=== PATIENT | female | born 1980 | race Caucasian/White ===

== ENCOUNTER 2020-09-10 10:03 | Outpatient (REF) | payer OTHER, SELFPAY ==
--- NOTE | ~2020-09-10 | MM_ITS ---
EXAMINATION: MM SCREENING DIGITAL BREAST TOMOSYNTHESIS, BILATERAL CLINICAL INFORMATION: Screening. Asymptomatic. The lifetime risk of breast cancer based on the Tyrer-Cuzick Model is 6.7%. COMPARISON: Mammography: December 25, 2018 and studies dating back to July 22, 2014 TECHNIQUE: Digital breast tomosynthesis is performed in both the craniocaudal and mediolateral oblique views along with computer-aided detection (CAD). Synthesized 2D images are generated from the tomosynthesis. FINDINGS: There are scattered areas of fibroglandular density (ACR BI-RADS breast composition Category b). There are no significant masses, abnormal calcifications, or other abnormalities. MM/MM tomosynthesis screening BI IMPRESSION: There are no significant changes from prior study. ASSESSMENT: BI-RADS 1: Negative RECOMMENDATION: Routine annual mammography screening. This patient's information was entered into a reminder system with a target due date for their next mammogram.
== END 2020-09-10 10:04 | disposition home or self-care (01) ==
LOC: HO.MAMMO 10:03
PROVIDERS: PCP Internal Medicine; Visit Provider Internal Medicine
DX: Z12.31 Encounter for screening mammogram for malignant neoplasm of breast (principal)
CPT/HCPCS: 77063; 77067

== ENCOUNTER → 2022-02-14 08:28 | Outpatient (REF) | payer OTHER, SELFPAY ==
--- NOTE | 2022-02-14 08:30 | CA_ITS ---
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 The calculated ejection fraction is 61% by biplane method. - Evidence suggests grade II (moderate) diastolic dysfunction. - The left atrium is moderately dilated. - There is mild to moderate mitral valve regurgitation. Findings Left Ventricle Normal left ventricular cavity size. There is normal left ventricular wall thickness. The left ventricular systolic function is normal. The calculated ejection fraction is 61% by biplane method. There is no evidence of regional wall motion abnormalities. Evidence suggests grade II (moderate) diastolic dysfunction. Right Ventricle Normal right ventricular cavity size and systolic function. Atria The left atrium is moderately dilated. The right atrium is normal in size. Aortic Valve There is a normal trileaflet aortic valve. There is no aortic valve stenosis. There is no aortic valve regurgitation. Mitral Valve There is mild anterior and posterior mitral leaflet thickening. There is mild mitral annular calcification. There is mild to moderate mitral valve regurgitation. There is mild mitral valve stenosis. Pulmonic Valve The pulmonic valve is likely normal. Tricuspid Valve There is trace tricuspid valve regurgitation. There is no evidence of pulmonary hypertension. Great Vessels The asc aorta is normal in size. Venous The inferior vena cava is normal in size and collapses greater than 50% with inspiration. Pericardium/Pleural There is no evidence of pericardial effusion. Prior Study Comparison No significant change compared to prior study dated: 07/18/2006. Measurements 2D Linear Measurements IVSd: 1.09 0.6-0.9/0.6-1.0 cm LVIDd: 5.34 3.9-5.3/4.2-5.9 cm LVIDd Index: 2.51 2.4-3.2/2.2-3.1 cm/m2 LVIDs: 3.17 2.0-3.6 cm LVPWd: 0.93 0.7-1.1 cm LA Diam: 3.80 2.7-3.8/3.0-4.0 cm LAIDs Index: 1.78 1.5-2.3 cm/m2 LV Mass: 256.44 67-162/88-224 g LV Mass Index: 120.39 43-95/49-115 g/m2 LVOT Diam: 2.00 3.0+(-)1.3 cm 2D Volumes LA Vol: 46.20 2D Systolic Function EF 4C: 60.20 >55% EF 2C: 61.50 >55% EF BiP: 60.60 >55% Mitral Valve MV VTI: 0.47 MV Pk Luiz: 1.45 MV Mn Luiz: 0.80 MV Pk Grad: 8.00 MV Mn Grad: 3.00 MV Pk E: 1.10 MV PK A: 0.80 MV Decel Time: 225.00 E/A: 1.40 E'Lateral: 7.83 E'Medial: 7.62 E/E' Med: 14.40 E/E' Lat: 14.00 PHT: 66.00 MVA PHT: 3.33 MVA Continuity: 1.19 Decel Knott: 4.88 MR Vol - PW Dopp: 46.92 MR VTI: 2.04 MR ERO: 23.00 MR Alias Luiz: 0.33 MR RAD: 0.80 Aortic Valve AoV Pk Luiz: 1.31 AoV Mn Luiz: 0.91 AoV VTI: 0.27 AoV Pk Grad: 7.00 Aov Mn Grad: 4.00 DOMINIQUE Cont.VTI: 2.07 LVOT LVOT Pk Luiz: 0.85 LVOT Mn Luiz: 0.59 LVOT VTI: 0.18 LVOT Pk Grad: 3.00 LVOT Mn Grad: 2.00 LVOT Diam: 2.00 LVOT Area: 3.14 Diastolic Function MV Pk E: 1.10 MV Pk A: 0.80 E/A: 1.40 E'Medial: 7.62 E/E' Med: 14.40 E' Laterial: 7.83 E/E' Lat: 14.00 Right Ventricle TAPSE (mm): 28.70 TVS' Luiz: 11.20 Tricuspid Valve TR Pk Luiz: 2.34 TR Pk Grad: 22.00 RA Press: 3.00 RVSP: 25.00 Great Vessels Aorta Sinus of Valsalva: 3.15 2.0-3.5 cm Ao Asc: 3.50 2.1-3.4 cm Updated in Other Vendor System with Status of Final Royer Herring MD electronically signed on 02/14/2022 1:45:04 PM with status of Final
== END ==
LOC: HO.CARD 08:28
PROVIDERS: PCP Internal Medicine; Visit Provider Nurse Practitioner Family
DX: I34.0 Nonrheumatic mitral (valve) insufficiency (principal)
CPT/HCPCS: 93306

== ENCOUNTER 2022-04-04 15:08 | Outpatient (REF) | payer OTHER, SELFPAY ==
--- NOTE | ~2022-04-04 | MM_ITS ---
EXAMINATION: MM SCREENING DIGITAL BREAST TOMOSYNTHESIS, BILATERAL CLINICAL INFORMATION: Screening. Asymptomatic. The lifetime risk of breast cancer based on the Tyrer-Cuzick Model is 8%. COMPARISON: Mammography: 09/10/2020, 12/25/2018, 07/22/2014 (baseline) TECHNIQUE: Digital breast tomosynthesis is performed in both the craniocaudal and mediolateral oblique views along with computer-aided detection (CAD). Synthesized 2D images are generated from the tomosynthesis. FINDINGS: There are scattered areas of fibroglandular density (ACR BI-RADS breast composition Category b). There are no significant masses, abnormal calcifications, or other abnormalities. Parenchymal pattern is similar to prior studies. There is no developing density or architectural abnormality. The axilla and skin contours are unremarkable. No significant changes. MM/MM tomosynthesis screening BI IMPRESSION: No mammographic evidence of malignancy. ASSESSMENT: BI-RADS 1: Negative RECOMMENDATION: Routine annual mammography screening. This patient's information was entered into a reminder system with a target due date for their next mammogram.
== END 2022-04-04 15:09 | disposition home or self-care (01) ==
LOC: HO.MAMMO 15:08
PROVIDERS: PCP Internal Medicine; Visit Provider Internal Medicine
DX: Z12.31 Encounter for screening mammogram for malignant neoplasm of breast (principal)
CPT/HCPCS: 77063; 77067

== ENCOUNTER → 2022-04-12 10:18 | Outpatient (BNVA) | payer OTHER, SELFPAY | PROVIDERS: PCP Internal Medicine; Referring Provider Nurse Practitioner Family; Visit Provider Internal Medicine Cardiovascular Disease | DX: I34.0 Nonrheumatic mitral (valve) insufficiency (principal); G47.30 Sleep apnea, unspecified | CPT/HCPCS: 93005; 99202 ==

== ENCOUNTER 2022-11-23 13:46 | Emergency (ER) | payer OTHER, SELFPAY ==
--- NOTE | ~2022-11-23 | XR_ITS ---
EXAMINATION: XR CHEST 2 VIEW CLINICAL INFORMATION: Chest pain COMPARISON: 11/04/2018 TECHNIQUE: PA and lateral views of the chest obtained. FINDINGS: The lungs are clear. There are no pleural effusions. The cardiomediastinal silhouette is normal. XR/XR chest 2V IMPRESSION: No acute cardiopulmonary disease.
--- NOTE | 2022-11-23 13:47 | ECG_ITS ---
Test Reason : CP Blood Pressure : / mmHG Vent. Rate : 105 BPM Atrial Rate : 105 BPM P-R Int : 150 ms QRS Dur : 078 ms QT Int : 338 ms P-R-T Axes : 059 034 047 degrees QTc Int : 446 ms Sinus tachycardia Otherwise normal ECG When compared with ECG of 15-JUN-2017 22:26, No significant change was found Referred By: Ena Dinh Electronically Signed By:NAILA AVINA
[2022-11-23 14:01] VITALS: BP 149/102; PULSE 100; RESP 18; TEMP 37.1; O2SAT 97; BMI 41.2
--- NOTE | 2022-11-23 14:02 | ED.CHESTPAIN ---
HPI - Chest Pain General Chief Complaint: Chest Pain Stated Complaint: chest pain Related Data Previous Rx's Medication Instructions Recorded albuterol sulfate 90 mcg/actuation 2 puff inhalation Q4-6H PRN 06/20/22 aerosol inhaler shortness of breath or wheezing 30 days #8.5 grams lisinopril 40 mg tablet 40 mg PO DAILY #90 tabs 10/31/22 hydrochlorothiazide 25 mg tablet 25 mg PO DAILY #30 tabs 12/12/22 hydroxyzine HCl 25 mg tablet 25 mg PO BEDTIME PRN insomnia #30 12/12/22 tabs Allergies Allergy/AdvReac Type Severity Reaction Status Date / Time No Known Allergies Allergy Verified 12/12/22 10:28 [No Known Allergies*] [facility] Past Medical History Medical History (Updated 12/23/22 @ 12:32 by JESSICA Lomax) Obesity Rib pain on left side Rib cage dysfunction High cholesterol Hypertension Surgical History (Updated 04/12/22 @ 10:30 by RUTHIE Santana) H/O section Family History Family History Mother Diabetes Father No problems noted. Social History Social History Housing: Apartment Alcohol intake: current Alcohol intake frequency: holidays/special occasions only Alcohol type: hard liquor Patient Tobacco Use Status: Never used Tobacco e-Cigarette/Vaping Use: Never Used Current occupational status: employed Cognitive needs: No Hearing needs: No Vision needs: No Physical Exam Vital Signs: Vital Signs: Last Vital Signs Temp 98.8 F 11/23/22 14:01 Pulse 100 11/23/22 14:01 Resp 18 11/23/22 14:01 BP 149/102 H 11/23/22 14:01 Pulse Ox 97 11/23/22 14:01 O2 Del Method Room Air 11/23/22 14:01 BMI result Body Mass Index 41.2 Course Course Course Narrative: RME- 14pm - 42yoF with a PMHx of HTN. HLD, mitral valve regurgitation being followed by Cardiology who is presenting to the ED with c/o of midsternal CP, SOB worse when she moves/walks and palpitations that woke up out of her sleep at 03:00 this morning. Reports that it has diminished since it started although it has never resolved. 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 She reports the pain radiates to her back. Unsure if it is related to muscle pain. Plan: Patient stable to be sent back to the waiting room to be evaluated the ED. Will obtain labs, chest x-ray an EKG at this time. Medical Decision Making Lab Data 11/23/22 14:01 11/23/22 14:01 Labs: Lab Results 11/23/22 11/23/22 Range/Units 14:00 14:01 WBC 7.9 (4.8-10.8) X10*3/uL RBC 4.77 (4.20-5.50) X10*6/uL Hgb 12.7 (12.0-16.0) g/dl Hct 38.8 (37.0-47.0) % MCV 81.3 (80.0-98.0) fL MCH 26.6 L (27.0-33.0) pg MCHC 32.7 (31.0-35.0) g/dl RDW 14.2 (11.0-16.0) % Plt Count 299 (160-400) X10*3/uL MPV 9.4 (9.4-12.3) fL Immature Gran % (Auto) 0.4 (0.0-0.4) % Neut % (Auto) 60.2 (45-73) % Lymph % (Auto) 31.0 (20-40) % Wilbarger % (Auto) 5.9 (2-11) % Eos % (Auto) 1.9 (0-4) % Baso % (Auto) 0.6 (0-2) % Lymph # (Auto) 2.5 (1.2-4.9) X10*3/uL Wilbarger # (Auto) 0.5 (0.1-1.2) X10*3/uL Eos # (Auto) 0.2 (0.0-0.4) X10*3/uL Baso # (Auto) 0.1 (0.0-0.2) X10*3/uL Abs Immat Gran (auto) 0.03 (0.00-0.03) X10*3/uL Absolute Neuts (auto) 4.8 (2.0-8.3) x10*3/uL Absolute Nucleated RBC 0.000 (0.0-0.012) X10*3/uL Nucleated RBC % (auto) 0.0 (0.0-0.2) /100WBC PT 12.0 (11.1-13.3) SEC INR 1.0 (0.9-1.1) Sodium 144 (135-145) mmol/L Potassium 3.8 (3.3-5.1) mmol/L Chloride 112 H (96-108) mmol/L Carbon Dioxide 24 (22-29) mmol/L Anion Gap 12 (12-20) BUN 11 (9-16) mg/dL Creatinine 0.76 (0.5-1.4) mg/dL Estim Creat Clear Calc 113.8 Estimated GFR > 60 Random Glucose 105 (60-115) mg/dL Calcium 9.9 D (8.4-10.2) mg/dL Magnesium 2.2 (1.6-2.6) mg/dL Total Bilirubin 0.3 (0.0-1.0) mg/dL AST 19 (5-31) U/L ALT 18 (0-31) U/L Alkaline Phosphatase 66 (39-117) U/L Troponin I High Sens 6.7 (<3.5-17.0) ng/L Total Protein 7.7 (6.5-8.0) g/dL Albumin 4.4 (3.5-5.0) g/dL TSH 1.05 (0.32-4.0) uIU/mL Beta HCG, Quant < 2 mIU/mL Discharge Plan Discharge Clinical Impression: Multiple complaints Patient Disposition: Elopement Prescriptions: No Action lisinopril 40 mg tablet 40 mg PO DAILY Qty: 90 1RF hydrochlorothiazide 25 mg tablet 25 mg PO DAILY Qty: 30 3RF hydroxyzine HCl 25 mg tablet 25 mg PO BEDTIME PRN (Reason: insomnia) Qty: 30 0RF albuterol sulfate 90 mcg/actuation HFA aerosol inhaler 2 puff inhalation Q4-6H PRN (Reason: shortness of breath or wheezing) 30 Days Qty: 8.5 1RF Discharge Date/Time: 11/23/22 20:14
[2022-11-23 14:08] LABS: MANUAL DIFF FLAG NO
[2022-11-23 14:15] LABS: Basophils Absolute Auto 0.1 X10*3/uL (0.0-0.2); Basophils Percent Auto 0.6 % (0-2); Eosinophils Absolute Auto 0.2 X10*3/uL (0.0-0.4); Eosinophils Percent Auto 1.9 % (0-4); Hematocrit 38.8 % (37.0-47.0); Hemoglobin 12.7 g/dl (12.0-16.0); Imm Gran Abs Auto 0.03 X10*3/uL (0.00-0.03); Imm Gran Pct Auto 0.4 % (0.0-0.4); Lymphocytes Absolute Auto 2.5 X10*3/uL (1.2-4.9); Mean Corpuscular HGB Conc 32.7 g/dl (31.0-35.0); Mean Corpuscular Hemoglobin 26.6 pg (27.0-33.0); Mean Corpuscular Volume 81.3 fL (80.0-98.0); Mean Platelet Volume 9.4 fL (9.4-12.3); Monocytes Absolute Auto 0.5 X10*3/uL (0.1-1.2); Monocytes Percent Auto 5.9 % (2-11); Neutrophils Absolute Auto 4.8 x10*3/uL (2.0-8.3); Neutrophils Percent Auto 60.2 % (45-73); Platelet Count 299 X10*3/uL (160-400); Red Blood Count 4.77 X10*6/uL (4.20-5.50); Red Cell Distribution Width 14.2 % (11.0-16.0); White Blood Count 7.9 X10*3/uL (4.8-10.8)
[2022-11-23 14:39] LABS: Alanine Aminotransferase 18 U/L (0-31); Albumin Level 4.4 g/dL (3.5-5.0); Alkaline Phosphatase 66 U/L (39-117); Anion Gap 12 (12-20); Aspartate Amino Transferase 19 U/L (5-31); Bilirubin Total 0.3 mg/dL (0.0-1.0); Blood Urea Nitrogen 11 mg/dL (9-16); Calcium 9.9 mg/dL (8.4-10.2); Carbon Dioxide 24 mmol/L (22-29); Chloride 112 mmol/L (96-108); Creatinine Clr Calc Pharmacy 113.8; Estimated Glomerular Filt Rate > 60; Glucose Random 105 mg/dL (60-115); Magnesium 2.2 mg/dL (1.6-2.6); Potassium 3.8 mmol/L (3.3-5.1); Sodium 144 mmol/L (135-145); Total Protein 7.7 g/dL (6.5-8.0)
[2022-11-23 14:40] LABS: Troponin-I High Sensitivity 6.7 ng/L (<3.5-17.0)
[2022-11-23 14:42] LABS: HCG Quantitative < 2 mIU/mL
[2022-11-23 14:54] LABS: TSH reflex Free T4 1.05 uIU/mL (0.32-4.0)
== END 2022-11-23 20:14 | disposition left against medical advice (07) ==
LOC: HO.ED 19:45
PROVIDERS: Physician Assistant Medical; Emergency Provider Emergency Medicine; PCP Internal Medicine
DX: R07.89 Other chest pain (principal); R06.02 Shortness of breath; Z79.899 Other long term (current) drug therapy
CPT/HCPCS: 36415; 71046; 80053; 83735; 84443; 84484; 84702; 85025; 85610; 93005; 99283

== ENCOUNTER 2022-12-12 10:04 | Outpatient (AMB) | payer OTHER, SELFPAY ==
[2022-12-12 10:14] VITALS: BP 152/90; PULSE 71; O2SAT 97; BMI 41.4
--- NOTE | 2022-12-12 10:14 | A.OFFPC_ITS ---
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 Allergies No Known Allergies [No Known Allergies*] Allergy (Verified 12/12/22 10:28) Medication List - Last Reconciled 12/12/22 by KENRICK Johnson albuterol sulfate 90 mcg/actuation 2 puffs inhalation Q4-6H PRN 30 days hydrochlorothiazide 12.5 mg PO DAILY 90 days lisinopril 40 mg PO DAILY Tobacco use date assessed: 12/12/22 Dental Screening Dental Screen Date: 12/12/22 Did you have a dental visit in the last 12 months?: No Did you have a dental problem in the last 6 months where you did not have access to dental care?: No Was dental information given to patient?: Patient has dentist HPI HPI Comments History of Present Illness Details Patient is a 42-year-old female who presents today for physical exam. Patient of Dr. Michelle. Medical history significant for neck pain, mitral regurgitation, asthma, obesity, high cholesterol, and hypertension. Review of the notes patient was followed by Dr. Espinoza for mitral valve regurgitation, recommended patient have follow-up echocardiogram in 2 years. Patient also presented to the emergency room on 11/23/22 for chest pain troponin negative EKG showed sinus tachycardia but otherwise normal EKG, chest x-ray and labs unremarkable. Patient reports having alot of stress at home related to family problems. Patient states unbale to stay asleep wakes up every hour. Patient states has tried OTC melotin but it gives her nightmares. Patient willing to trial hydroxyzine for sleep. [facility] Medical History (Updated 12/12/22 @ 10:41 by KENRICK Johnson) Obesity Rib pain on left side Rib cage dysfunction High cholesterol Hypertension Surgical History (Updated 04/12/22 @ 10:30 by RUTHIE Santana) H/O section Family History Mother Diabetes Father No problems noted. Social History Housing: Apartment Alcohol intake: current Alcohol intake frequency: holidays/special occasions only Alcohol type: hard liquor Patient Tobacco Use Status: Never used Tobacco e-Cigarette/Vaping Use: Never Used Current occupational status: employed Cognitive needs: No Hearing needs: No Vision needs: No Questionnaire Thrive Questionnaire Date Thrive assessed: 03/22/22 AUDIT C Alcohol Use Questionnaire (AUDIT-C) 1. How often do you have a drink containing alcohol?: Never 3. How often do you have six or more drinks on one occasion?: Never Total Score: 0 Score Reviewed/Action Taken: No MADAY-7 AMB Questionnaire MADAY-7 Date MADAY - 7 assessed: 03/22/22 Source: Developed by Drs. Kodak Kiran, Magaly Martinez, Bert Benítez and colleagues, with an educational torrie from [employer]. Review of Systems Const Denies chills, Denies fatigue, Denies fever(s) and Denies poor appetite Eyes Denies no additional complaints ENT Reports Normal hearing present Card Denies chest pain, Denies syncope, Denies rapid heart rate and Denies dyspnea Resp Denies cough and Denies dyspnea GI Denies change in stool character, Denies constipation, Denies diarrhea, Denies nausea and Denies vomiting Denies urinary frequency, Denies dysuria and Denies urinary urgency Neuro Reports Normal hearing present, Denies confusion and Denies syncope Psych Denies confusion Endo Denies fatigue Physical exam (Primary Care) Vital Signs: Last Vital Signs Pulse 71 12/12/22 10:14 BP 152/90 H 12/12/22 10:14 Pulse Ox 97 12/12/22 10:14 Oxygen Delivery Method Room Air 12/12/22 10:14 BMI result Body Mass Index 41.4 Tobacco/Smoking Status: Tobacco use Status Tobacco use date assessed 12/12/22 12/12/22 10:15 Patient Tobacco Use Status Never used Tobacco 12/12/22 10:15 e-Cigarette/Vaping Use Never Used 12/12/22 10:15 Thrive Assessment: Date of Thrive Assessment Date Thrive assessed 03/22/22 12/12/22 10:15 Const General: No confusion Orientation/consciousness: No confusion HENMT Head: Yes normocephalic and Yes atraumatic Eyes Conjunctivae: conjunctivae normal Chest Chest palpation & inspection: normal inspection of the chest Resp Effort & Inspection: normal respiratory effort Auscultation: clear to auscultation bilaterally, no crackles, no rhonchi and no wheezes Cardio Rate: regular rate Rhythm: regular rhythm Heart sounds: S1 normal heart sound present and S2 normal heart sound present GI Inspection: Yes normal to inspection Neuro General: No confusion Cranial nerves: Yes Normal hearing present Extrem General: No edema Assessment and Plan Assessment & Plan (1) Mitral regurgitation: Code(s): I34.0 - Nonrheumatic mitral (valve) insufficiency Plan: Continue to follow with Cardiology. Cardiology recommending repeat echocardiogram every 2 years. (2) Hypertension: Code(s): I10 - Essential (primary) hypertension Qualifiers: Hypertension type: essential hypertension Qualified Code(s): I10 - Essential (primary) hypertension Plan: Continue on lisinopril 40 mg daily. Given blood pressure elevated office today 152/90 will increase hydrochlorothiazide to 25 mg daily. Patient reports she does have a blood pressure cuff home, advised to take blood pressures at home after sitting down for 3-5 minutes and keep a log and call office with any elevated blood pressure readings. Patient advised to follow low-salt diet and exercise. (3) High cholesterol: Code(s): E78.00 - Pure hypercholesterolemia, unspecified Plan: Continue to follow low-cholesterol diet. (4) Insomnia: Code(s): G47.00 - Insomnia, unspecified Plan: Will trial hydroxyzine 25 mg at bedtime for sleep. Plan Follow-up in 3 months. Medications: New hydrochlorothiazide 25 mg PO DAILY 30 tabs 3RF I10 - Essential (primary) hypertension hydroxyzine HCl 25 mg PO BEDTIME PRN 30 tabs 0RF insomnia G47.00 - Insomnia, unspecified Discontinued hydrochlorothiazide Discontinued Reason: Patient no longer taking 12.5 mg PO DAILY 90 days 90 tabs 3RF Coding Level of Care Code Est Pt Level 4 (75330) Diagnoses Mitral regurgitation I34.0 Essential hypertension I10 Hypertension type: essential hypertension High cholesterol E78.00 Insomnia G47.00
== END 2022-12-12 10:43 | disposition home or self-care (01) ==
PROVIDERS: PCP Internal Medicine; Visit Provider Nurse Practitioner Family
DX: I10 Essential (primary) hypertension (principal); E78.00 Pure hypercholesterolemia, unspecified; G47.00 Insomnia, unspecified; J45.909 Unspecified asthma, uncomplicated
CPT/HCPCS: 99214

== ENCOUNTER 2023-03-28 17:16 | Outpatient (AMB) | payer OTHER, SELFPAY ==
[2023-03-28 17:18] VITALS: BP 148/92; PULSE 84; RESP 16; O2SAT 98; BMI 41.7
--- NOTE | 2023-03-28 17:18 | A.OFFPC_ITS ---
Vital Signs 03/28/23 17:18 Height 5 ft 4 in Weight 243 lb 2 oz BMI 41.7 BP 148/92 H Blood Pressure Location Lt brachial Position Sitting Respiration 16 Pulse 84 Pulse Source Pulse Oximeter Pulse Oximetry (%) 98 Oxygen Delivery Method Room Air Intake Visit Reasons: PE Intake Note: Patient is here today for a physical. Editor Managing Director Required: No Accompanied by: Self / Same As Patient Allergies No Known Allergies [No Known Allergies*] Allergy (Verified 03/28/23 17:19) Medication List - Last Reconciled 03/28/23 by Sanjana More MD albuterol sulfate 90 mcg/actuation 2 puffs inhalation Q4-6H PRN 30 days hydrochlorothiazide 12.5 mg PO DAILY hydroxyzine HCl 25 mg PO BEDTIME PRN lisinopril 40 mg PO DAILY Tobacco use date assessed: 03/28/23 Dental Screening Dental Screen Date: 03/28/23 Did you have a dental visit in the last 12 months?: Yes Did you have a dental problem in the last 6 months where you did not have access to dental care?: No Was dental information given to patient?: Patient has dentist HPI HPI Comments History of Present Illness Details This is a 43-year-old female with morbid obesity that comes for her physical exam. She is morbidly obese with a BMI of 41.7 and declines weight loss surgery. Advised to diet and exercise to reach BMI goal less than 30. Complains of fatigue and tiredness. Last mammogram was March 2022. Has never had a colonoscopy and has no family history of colon cancer. Will have Cologuard. Last Pap smear was over 4 years ago. No chest pain or shortness of breath. FORMERLY [facility], [facility] Medical History (Updated 03/28/23 @ 17:44 by Snajana More MD) Obesity Rib pain on left side Rib cage dysfunction High cholesterol Hypertension Surgical History H/O section Family History Mother Diabetes Father No problems noted. Social History Housing: Apartment Alcohol intake: current Alcohol intake frequency: holidays/special occasions only Alcohol type: hard liquor Patient Tobacco Use Status: Never used Tobacco e-Cigarette/Vaping Use: Never Used Current occupational status: employed Cognitive needs: No Hearing needs: No Vision needs: No Questionnaire PHQ-9 Over the last 2 weeks, how often have you been bothered by any of the following problems? 1. Little interest or pleasure in doing things: not at all 2. Feeling down, depressed, or hopeless: not at all 3. Trouble falling or staying asleep, or sleeping too much: not at all 4. Feeling tired or having little energy: not at all 5. Poor appetite or overeating: not at all 6. Feeling bad about yourself - or that you are a failure or have let yourself or your family down: not at all 7. Trouble concentrating on things, such as reading the newspaper or watching television: not at all 8. Moving or speaking so slowly that other people could have noticed. Or the opposite - being so fidgety or restless that you have been moving around a lot more than usual: not at all 9. Thoughts that you would be better off or of hurting yourself in some way: not at all Total score: 0 Depression Screening Interpretation: Negative Depression Screening Done: Yes 41130 - PHQ-9 Billing: Yes Source: Developed by Drs. Kodak Kiran, Magaly Martinez, Bert Benítez and colleagues, with an educational torrie from [employer]. Thrive Questionnaire Date Thrive assessed: 03/28/23 I am a: Patient What is your living situation today?: I have a steady place to live Within the past 12 months, did the food you bought not last and you didn't have the money to get more?: Never true Within the past 12 months, did you worry whether your food would run out before you got money to buy more?: Never true Do you have trouble paying for medicines?: No Do you have trouble getting transportation to medical appointments?: No Do you have trouble paying your heating and electricity bill?: No Do you have trouble taking care of your child, family member or friend?: No Do you have trouble with day-to-day activities such as bathing, preparing meals, shopping, managing finances, etc.?: No Are you currently unemployed and looking for a job?: No Are you interested in more education?: No Please select the resources that you would like help with: None Currently or been in a relationship where the following occur: no concerns reported AUDIT C Alcohol Use Questionnaire (AUDIT-C) 1. How often do you have a drink containing alcohol?: Never 3. How often do you have six or more drinks on one occasion?: Never Total Score: 0 Score Reviewed/Action Taken: No MADAY-7 AMB Questionnaire MADAY-7 Date MADAY - 7 assessed: 03/28/23 Feeling nervous, anxious, or on edge: 3 = Nearly every day Not being able to stop or control worryin = More than half the days Worrying too much about different things: 3 = Nearly every day Trouble relaxin = Nearly every day Being so restless that it is hard to sit still: 3 = Nearly every day Becoming easily annoyed or irritable: 3 = Nearly every day Feeling afraid as if something awful might happen: 1 = Several days Total MADAY-7 score (0-4 normal; 5-9 mild; 10-14 moderate; 15-21 severe): 18 Source: Developed by Drs. Kodak Kiran, Magaly Martinez, Bert Benítez and colleagues, with an educational torrie from [employer]. MADAY-7 Assessment Billing MADAY-7 Assessment Tool: MADAY-7 Assessment 31033 Review of Systems Const All systems reviewed & are unremarkable except as noted in HPI and below Eyes Reports no additional complaints, Denies change in vision and Denies other visual disturbances Card Denies chest pain at rest, Denies chest pain with activity, Denies edema, Denies irregular heart rhythm, Denies claudication, Denies dyspnea, Denies dyspnea on exertion, Denies orthopnea, Denies paroxysmal nocturnal dyspnea and Denies slow heart rate Resp Denies cough, Denies dyspnea and Denies dyspnea on exertion GI Denies abdominal pain, Denies change in bowel habits, Denies excessive flatus, Denies nausea and Denies vomiting Denies urinary incontinence, Denies urinary hesitancy and Denies urinary urgency Musc Denies abnormal gait, Denies atrophy, Denies deformity and Denies limited range of motion Skin/Breast Denies bleeding lesions, Denies changing lesions and Denies rash Neuro Denies abnormal gait, Denies behavioral changes, Denies confusion and Denies lack of coordination Psych Denies behavioral changes and Denies confusion Physical exam (Primary Care) Vital Signs: Last Vital Signs Pulse 84 03/28/23 17:18 Resp 16 03/28/23 17:18 BP 148/92 H 03/28/23 17:18 Pulse Ox 98 03/28/23 17:18 Oxygen Delivery Method Room Air 03/28/23 17:18 BMI result Body Mass Index 41.7 Tobacco/Smoking Status: Tobacco use Status Tobacco use date assessed 03/28/23 03/28/23 17:24 Patient Tobacco Use Status Never used Tobacco 03/28/23 17:24 e-Cigarette/Vaping Use Never Used 03/28/23 17:24 PHQ-9: PHQ-9 Score PHQ-9: Total score 0 03/28/23 17:24 Depression Screening Interpretation: Negative Thrive Assessment: Date of Thrive Assessment Date Thrive assessed 03/28/23 03/28/23 17:24 Currently or been in a relationship where the following occur: no concerns reported Const General: No confusion Orientation/consciousness: patient oriented x3 and No confusion HENMT Head: Yes normal to inspection, Yes normocephalic and Yes atraumatic Ears: external ears normal Eyes General: appearance normal, both eyes and all related structures Eyelids: Yes eyelids normal Conjunctivae: conjunctivae normal Neck Neck: Yes normal visual inspection and Yes supple Resp Effort & Inspection: normal respiratory effort Auscultation: clear to auscultation bilaterally Cardio Jugular venous distension: no JVD Rate: regular rate Rhythm: regular rhythm Heart sounds: S1 normal heart sound present and S2 normal heart sound present GI Inspection: Yes normal to inspection Palpation (GI): Soft to palpation and nontender Auscultation: normal bowel sounds Skin General skin exam: no rashes or lesions noted Neuro General: patient oriented x3, no focal motor deficits and No confusion Extrem General: Yes full ROM Psych Appearance: grossly normal Assessment and Plan Assessment & Plan (1) Physical exam: Code(s): Z00.00 - Encounter for general adult medical examination without abnormal findings Plan: Repeat in a year. (2) Morbid obesity with BMI of 40.0-44.9, adult: Code(s): E66.01 - Morbid (severe) obesity due to excess calories; Z68.41 - Body mass index [BMI] 40.0-44.9, adult Plan: Start diet and exercise. BMI goal is less than 30. Orders: Orders Vitamin D 25-OH Total Today E55.9 - Vitamin D deficiency, unspecified Vitamin B12 and Folate Today E53.8 - Deficiency of other specified B group vitamins Lipid Panel Today E78.5 - Hyperlipidemia, unspecified, Z00.00 - Encounter for general adult medical examination without abnormal findings Thyroid Stimulating Hormone Today E66.01 - Morbid (severe) obesity due to excess calories, Z68.41 - Body mass index [BMI] 40.0-44.9, adult Comprehensive [place]. Panel Fast Today Z00.00 - Encounter for general adult medical examination without abnormal findings Complete Blood Count Auto Diff Today E66.01 - Morbid (severe) obesity due to excess calories, Z68.41 - Body mass index [BMI] 40.0-44.9, adult Referrals [employer] Referral Z12.4 - Encounter for screening for malignant neoplasm of cervix Cologuard Test Z12.11 - Encounter for screening for malignant neoplasm of colon, Z12.12 - Encounter for screening for malignant neoplasm of rectum Medications: New Ventolin HFA 90 mcg/actuation (albuterol sulfate) 2 puffs inhalation Q6H PRN 8 grams 1RF shortness of breath or wheezing 30 days NS Refilled lisinopril 40 mg PO DAILY 90 tabs 1RF hydrochlorothiazide 12.5 mg PO DAILY 90 tabs 3RF I10 - Essential (primary) hypertension hydroxyzine HCl 25 mg PO BEDTIME PRN 30 tabs 0RF insomnia G47.00 - Insomnia, unspecified Coding Level of Care Code Est Pt Prev Care 40-64y(52764) Diagnoses Physical exam Z00.00 Morbid obesity with BMI of 40.0-44.9, adult E66.01; Z68.41 Additional Codes MADAY-7 Assessment Billing - MADAY-7 Assessment Tool: MADAY-7 Assessment 19412 ([id number]) Time Spent (min) 32
== END 2023-03-28 17:41 | disposition home or self-care (01) ==
PROVIDERS: Visit Provider Internal Medicine
DX: Z00.00 Encounter for general adult medical examination without abnormal findings (principal); E66.01 Morbid (severe) obesity due to excess calories; Z68.41 Body mass index [BMI] 40.0-44.9, adult
CPT/HCPCS: 99396

== ENCOUNTER 2023-06-06 15:29 | Outpatient (REF) | payer OTHER, SELFPAY | END 2023-06-06 15:30 | disposition home or self-care (01) | LOC: HO.MAMMO 15:29 | PROVIDERS: PCP Internal Medicine; Visit Provider Internal Medicine | DX: Z12.31 Encounter for screening mammogram for malignant neoplasm of breast (principal) | CPT/HCPCS: 77063; 77067 ==

== ENCOUNTER → 2023-06-06 15:45 | Outpatient (BNV) | payer OTHER, SELFPAY | PROVIDERS: PCP Internal Medicine; Visit Provider Radiology Diagnostic Radiology | DX: Z12.31 Encounter for screening mammogram for malignant neoplasm of breast (principal) | CPT/HCPCS: 77063; 77067 ==

== ENCOUNTER 2023-06-18 14:02 | Outpatient (AMB) | payer OTHER, SELFPAY ==
[2023-06-18 14:06] VITALS: BP 140/72; PULSE 87; BMI 42.7
--- NOTE | 2023-06-18 14:06 | MHC.OFFVIS ---
Intake Vital Signs 06/18/23 14:06 Height 5 ft 4 in Weight 248 lb 10.903 oz BMI 42.7 BP 140/72 H Blood Pressure Location Lt radial Position Sitting Pulse 87 Intake Visit Reasons: 1 yr f/up Intake Note: pt its here for 1 yr f/up/ pt states that she its doing ok. Lab Aide Required: No Accompanied by: Self / Same As Patient Allergies No Known Allergies [No Known Allergies*] Allergy (Verified 03/28/23 17:19) Medication List - Last Reconciled 06/18/23 by Hernán Craig MD albuterol sulfate 90 mcg/actuation 2 puffs inhalation Q4-6H PRN 30 days hydrochlorothiazide 12.5 mg PO DAILY hydroxyzine HCl 25 mg PO BEDTIME PRN lisinopril 40 mg PO DAILY Ventolin HFA 90 mcg/actuation (albuterol sulfate) 2 puffs inhalation Q6H PRN 30 days NS HPI HPI Comments History of Present Illness Details 43-year-old female who was following with [facility] cardiovascular associates and wishes to change our care to [facility]. She has background history of hypertension and mitral valve regurgitation. It appears she was diagnosed with mitral regurgitation after murmur was heard few years back. She has been following with Cardiology since then and was getting yearly echocardiogram. By her report she was told that there has not been any significant change in the mitral valve regurgitation. The exact etiology is unclear but it is possible that she has mitral valve prolapse. She has no chest discomfort shortness of breath. Clinically has not been heart failure. She has background of asthma and uses albuterol. Blood pressure control is good on amlodipine, hydrochlorothiazide and lisinopril. She snores at night and has daytime sleepiness. She is asking if she can have a sleep study. 06/18/23: She returns for follow-up. I received her previous records and she had documentation of moderately severe and at times severe mitral valve regurgitation. No symptoms previously were noted. She had 4 pregnancies in the past and it is unclear whether the echoes were performed during and maybe that is why the regurgitation appeared worse due to increased blood volume. She did have preeclampsia during her 2nd and lost the fetus. Her blood pressure is little elevated and she is taking lisinopril and hydrochlorothiazide 12.5 mg daily. No other clinical symptoms currently. FORMERLY [facility] Medical History Obesity Rib pain on left side Rib cage dysfunction High cholesterol Hypertension Surgical History H/O section Family History Mother Diabetes Father No problems noted. Social History Housing: Apartment Alcohol intake: current Alcohol intake frequency: holidays/special occasions only Alcohol type: hard liquor Patient Tobacco Use Status: Never used Tobacco e-Cigarette/Vaping Use: Never Used Current occupational status: employed Cognitive needs: No Hearing needs: No Vision needs: No Review of Systems Const Denies chills, Denies fatigue, Denies fever(s), Denies frequent falls, Denies weakness, Denies weight gain and Denies weight loss ENT Denies dizziness Card Denies chest pain, Denies leg edema, Denies lightheadedness, Denies palpitations, Denies dyspnea and Denies dyspnea on exertion Resp Denies cough, Denies dyspnea and Denies dyspnea on exertion GI Denies hematochezia Musc Denies abnormal gait, Denies muscle weakness, Denies numbness, Denies radiating pain into limb and Denies tingling Neuro Denies abnormal gait, Denies dizziness, Denies frequent falls, Denies numbness, Denies tingling and Denies weakness Endo Denies fatigue and Denies palpitations Physical Exam Vital Signs: Last Vital Signs Pulse 87 06/18/23 14:06 BP 140/72 H 06/18/23 14:06 BMI result Body Mass Index 42.7 GENERAL APPEARANCE: in no acute distress, pleasant. NECK: no carotid bruit, no jugular venous distention. SKIN: no suspicious lesions, warm and dry. HEART: Mid systolic murmur at the apex heard after handgrip maneuver, regular rate and rhythm. LUNGS: clear to auscultation bilaterally. ABDOMEN: soft, nontender. EXTREMITIES: no edema. PERIPHERAL PULSES: equal. NEUROLOGIC: No gross deficits, AAO X 3 Office Procedures EKG Details: Sinus rhythm 87 beats per minute, normal axis, nonspecific ST changes, QTC 462 milliseconds. [id number], Complete Assessment & Plan Assessment & Plan (1) Mitral regurgitation: Code(s): I34.0 - Nonrheumatic mitral (valve) insufficiency (2) Hypertension: Code(s): I10 - Essential (primary) hypertension Qualifiers: Hypertension type: essential hypertension Qualified Code(s): I10 - Essential (primary) hypertension Plan [age] year female presenting for follow-up. She has background of hypertension and preeclampsia. She was being seen by a different group for moderate to severe at times severe mitral valve regurgitation seen on echocardiography. Clinically she has been stable. Last echo was in 2021 which showed [id number] mitral valve regurgitation. By exam also murmur is only obvious when she does hand yard driver maneuver and otherwise I do not hear any obvious holosystolic murmur. Blood pressure is elevated and I have advised her to increase hydrochlorothiazide to 25 mg daily. We will repeat echocardiogram to reassess the mitral valve. I have taught her some symptoms of heart failure including shortness of breath, orthopnea, PND. She will reach out to us if she gets any of these symptoms. Thank you for allowing me to participate in the care of your patient. Please feel free to contact me if you have any questions. Orders: Orders CA echo transthoracic complete Today I34.0 - Nonrheumatic mitral (valve) insufficiency Medications: New hydrochlorothiazide 25 mg PO DAILY 60 tabs 3RF I34.0 - Nonrheumatic mitral (valve) insufficiency Discontinued hydrochlorothiazide Discontinued Reason: Doctor's Order 12.5 mg PO DAILY 90 tabs 3RF I10 - Essential (primary) hypertension Quality Reporting (2019) Adult ([facility] 138/05/10/68) Smoking risk assessment performed?: Yes Patient Tobacco Use Status: Never used Tobacco Coding Level of Care Code Est Pt Level 4 (90186) Diagnoses Mitral regurgitation I34.0 Essential hypertension I10 Hypertension type: essential hypertension CPT Codes EKG - CPT: 06287-[id number], Complete ([id number])
== END 2023-06-18 14:47 | disposition home or self-care (01) ==
PROVIDERS: PCP Internal Medicine; Visit Provider Internal Medicine Cardiovascular Disease
DX: I34.0 Nonrheumatic mitral (valve) insufficiency (principal); I10 Essential (primary) hypertension
CPT/HCPCS: 93010; 99214

== ENCOUNTER → 2023-06-18 14:02 | Outpatient (BNVA) | payer OTHER, SELFPAY | PROVIDERS: PCP Internal Medicine; Visit Provider Internal Medicine Cardiovascular Disease | DX: I10 Essential (primary) hypertension (principal); I34.0 Nonrheumatic mitral (valve) insufficiency | CPT/HCPCS: 93005; 99212 ==

== ENCOUNTER → 2023-07-09 14:45 | Outpatient (REF) | payer OTHER, SELFPAY ==
--- NOTE | 2023-07-09 14:50 | CA_ITS ---
Transthoracic Echocardiogram Amended Patient (Last, First, Middle): Kayleigh Yin, Gender: Female Date of : 1980 Age: 43 Procedure Date: 07/09/2023 Procedure Type: Transthoracic Echocardiogram Location: OP Height: 165.1 cm Weight: 111.13 kg BSA: 2.16 m2 Heart Rate: bpm BP: 116 / 78 mmHg Registered Nurse Teacher: PERCY Referring MD: Hernán Craig MD Bindery Production Manager: Riki Gao MD Symptoms: I34.0 - Nonrheumatic mitral (valve) insufficiency Study Quality: Adequate ECG Rhythm: Sinus Conclusions: - 1. Normal LV ejection fraction 65-70% 2. Moderately dilated left atrium 3. Moderate mitral regurgitation 4. No gross pericardial effusion Findings Left Ventricle Normal left ventricular size, thickness, and systolic function. The visually estimated ejection fraction is between 65-70%. Spectral Doppler is indicative of a normal filling pattern. Peak GLS is -24.1%, within normal limits. Right Ventricle Normal right ventricular cavity size and systolic function. Atria The left atrium is moderately dilated. There is no evidence of interatrial shunt. The right atrium is normal in size. Aortic Valve Normal aortic valve structure and function. There is no aortic valve stenosis. There is mild aortic valve regurgitation. Mitral Valve There is mild anterior and posterior mitral leaflet thickening. The posterior mitral leaflet has restricted mobility. There is moderate mitral valve regurgitation. There is no mitral valve stenosis. Pulmonic Valve The pulmonic valve is likely normal. There is trace pulmonic valve regurgitation. Tricuspid Valve Normal tricuspid valve structure. There is trace tricuspid valve regurgitation. The right ventricular systolic pressure is normal. The right ventricular systolic pressure is 21 mmHg. Normal right atrial pressure. There is no evidence of pulmonary hypertension. Great Vessels All visible segments of the aorta are normal in size. The pulmonary artery was not well visualized. Venous The inferior vena cava is normal in size and collapses greater than 50% with inspiration. Pericardium/Pleural There is no evidence of pericardial effusion. Prior Study Comparison No significant change compared to prior study dated: 02/14/2022. Measurements 2D Linear Measurements IVSd: 0.99 0.6-0.9/0.6-1.0 cm LVIDd: 5.01 3.9-5.3/4.2-5.9 cm LVIDd Index: 2.32 2.4-3.2/2.2-3.1 cm/m2 LVIDs: 3.02 2.0-3.6 cm LVPWd: 0.96 0.7-1.1 cm LA Diam: 4.30 2.7-3.8/3.0-4.0 cm LAIDs Index: 1.99 1.5-2.3 cm/m2 LV Mass: 219.56 67-162/88-224 g LV Mass Index: 101.65 43-95/49-115 g/m2 LVOT Diam: 2.00 3.0+(-)1.3 cm 2D Volumes LA Vol: 43.10 2D Systolic Function EF 4C: 65.20 >55% EF 2C: 68.80 >55% EF BiP: 66.30 >55% Mitral Valve MV VTI: 0.48 MV Pk Luiz: 1.60 MV Mn Luiz: 1.12 MV Pk Grad: 10.00 MV Mn Grad: 5.00 MV Pk E: 1.49 MV PK A: 1.16 MV Decel Time: 194.00 E/A: 1.30 E'Lateral: 11.30 E'Medial: 9.68 E/E' Med: 15.40 E/E' Lat: 13.20 PHT: 57.00 MVA PHT: 3.86 MVA Continuity: 1.68 Decel [place]: 7.69 MR Vol - PW Dopp: 24.48 MR VTI: 1.53 MR ERO: 16.00 MR Alias Luiz: 0.35 MR RAD: 0.60 Aortic Valve AoV Pk Luiz: 1.91 AoV Mn Luiz: 1.35 AoV VTI: 0.40 AoV Pk Grad: 15.00 Aov Mn Grad: 8.00 DOMINIQUE Cont.VTI: 2.01 LVOT LVOT Pk Luiz: 1.28 LVOT Mn Luiz: 0.83 LVOT VTI: 0.26 LVOT Pk Grad: 7.00 LVOT Mn Grad: 3.00 LVOT Diam: 2.00 LVOT Area: 3.14 Diastolic Function MV Pk E: 1.49 MV Pk A: 1.16 E/A: 1.30 E'Medial: 9.68 E/E' Med: 15.40 E' Laterial: 11.30 E/E' Lat: 13.20 Right Ventricle TAPSE (mm): 30.00 TVS' Luiz: 14.80 Tricuspid Valve TR Pk Luiz: 2.12 TR Pk Grad: 18.00 RA Press: 3.00 RVSP: 21.00 Great Vessels Aorta Sinus of Valsalva: 3.09 2.0-3.5 cm Ao Asc: 3.50 2.1-3.4 cm Ao Arch: 3.00 Updated in Other Vendor System with Status of Final Riki Gao MD electronically signed on 07/10/2023 11:50:13 AM with status of Final
== END ==
LOC: HO.CARD 14:45
PROVIDERS: PCP Internal Medicine; Visit Provider Internal Medicine Cardiovascular Disease
DX: I34.0 Nonrheumatic mitral (valve) insufficiency (principal)
CPT/HCPCS: 93306; 93356

== ENCOUNTER → 2023-07-09 14:50 | Outpatient (BNV) | payer OTHER, SELFPAY | PROVIDERS: PCP Internal Medicine; Visit Provider Internal Medicine Cardiovascular Disease | DX: I34.0 Nonrheumatic mitral (valve) insufficiency (principal) | CPT/HCPCS: 93306; 93356 ==

== ENCOUNTER 2023-07-13 12:10 | Outpatient (REF) | payer OTHER, SELFPAY ==
[2023-07-13 12:26] LABS: MANUAL DIFF FLAG NO
[2023-07-13 12:36] LABS: Basophils Percent Auto 0.7 % (0-2); Eosinophils Absolute Auto 0.2 X10*3/uL (0.0-0.4); Hematocrit 34.9 % (37.0-47.0); Hemoglobin 11.5 g/dl (12.0-16.0); Imm Gran Abs Auto 0.01 X10*3/uL (0.00-0.03); Imm Gran Pct Auto 0.2 % (0.0-0.4); Lymphocytes Absolute Auto 2.1 X10*3/uL (1.2-4.9); Lymphocytes Percent Auto 34.8 % (20-40); Mean Corpuscular Hemoglobin 26.7 pg (27.0-33.0); Monocytes Absolute Auto 0.4 X10*3/uL (0.1-1.2); Monocytes Percent Auto 6.3 % (2-11); Neutrophils Absolute Auto 3.3 x10*3/uL (2.0-8.3); Platelet Count 273 X10*3/uL (160-400); Red Blood Count 4.31 X10*6/uL (4.20-5.50); Red Cell Distribution Width 14.3 % (11.0-16.0)
[2023-07-13 13:28] LABS: Alanine Aminotransferase 13 U/L (0-31); Albumin Level 3.9 g/dL (3.5-5.0); Alkaline Phosphatase 69 U/L (39-117); Anion Gap 10 (12-20); Aspartate Amino Transferase 13 U/L (5-31); Bilirubin Total 0.4 mg/dL (0.0-1.0); Blood Urea Nitrogen 10 mg/dL (9-16); Calcium 9.4 mg/dL (8.4-10.2); Carbon Dioxide 29 mmol/L (22-29); Chloride 106 mmol/L (96-108); Cholesterol 250 mg/dL (<200); Estimated Glomerular Filt Rate > 60; Glucose Fasting 100 mg/dL (60-99); HDL Cholesterol 37 mg/dL (>40); LDL Cholesterol Calculated 184 mg/dL (<100); Potassium 3.9 mmol/L (3.3-5.1); Sodium 141 mmol/L (135-145); Total Protein 7.2 g/dL (6.5-8.0); Triglycerides 147 mg/dL (<150)
[2023-07-13 13:45] LABS: Thyroid Stimulating Hormone 1.65 uIU/mL (0.32-4.0); Vitamin D 25-OH Total 12.5 ng/mL (>30)
[2023-07-13 14:00] LABS: Folate 6.1 ng/mL (> or = 4.0); Vitamin B12 294 pg/mL (200-900)
== END 2023-07-13 12:11 | disposition home or self-care (01) ==
LOC: HO.LAB 12:10
PROVIDERS: PCP Internal Medicine; Visit Provider Internal Medicine
DX: Z00.00 Encounter for general adult medical examination without abnormal findings (principal); E78.5 Hyperlipidemia, unspecified; E66.01 Morbid (severe) obesity due to excess calories; Z68.41 Body mass index [BMI] 40.0-44.9, adult; E55.9 Vitamin D deficiency, unspecified; E53.8 Deficiency of other specified B group vitamins
CPT/HCPCS: 36415; 80053; 80061; 82306; 82607; 82746; 84443; 85025

== ENCOUNTER 2023-10-02 11:09 | Outpatient (AMB) | payer OTHER, SELFPAY ==
--- NOTE | 2023-10-02 11:10 | MHC.PC.OV ---
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 Required: No Accompanied by: Self / Same As Patient Allergies No Known Allergies [No Known Allergies*] Allergy (Verified 10/02/23 11:17) Medication List - Last Reconciled 10/02/23 by Sanjana More MD cholecalciferol (vitamin D3) 50 mcg PO DAILY 90 days hydrochlorothiazide 25 mg PO DAILY hydroxyzine HCl 25 mg PO BEDTIME PRN lisinopril 40 mg PO DAILY Ventolin HFA 90 mcg/actuation (albuterol sulfate) 2 puffs inhalation Q6H PRN 30 days NS Tobacco use date assessed: 03/28/23 Dental Screening Dental Screen Date: 03/28/23 HPI HPI Comments History of Present Illness Details This is a 43-year-old female with hypertension, morbid obesity and asthma that complains of dizziness associated with bilateral tinnitus that happened last week and resolved. She complains of occasional vertigo and used to be on meclizine for this matter. She also has been complaining of diffuse abdominal pain and would like to see Gastroenterology. Blood pressure stable. She is morbidly obese with a BMI of 42.4 and has tried diet and exercise with no relief. Will be start on Wegovy. Patient aware of side effects. She has asthma and has not required rescue inhaler in over a month. Denies any chest pain or shortness on breath. [facility] Medical History (Updated 10/02/23 @ 16:00 by Sanjana More MD) Obesity Rib pain on left side Rib cage dysfunction High cholesterol Hypertension Surgical History H/O section Family History Mother Diabetes Father No problems noted. Social History Housing: Apartment Alcohol intake: current Alcohol intake frequency: holidays/special occasions only Alcohol type: hard liquor Patient Tobacco Use Status: Never used Tobacco e-Cigarette/Vaping Use: Never Used Second Hand Smoke Exposure: No service: No Current occupational status: employed Current occupational exposures/hazards: No Cognitive needs: No Hearing needs: No Vision needs: No Questionnaire Thrive Questionnaire Date Thrive assessed: 03/28/23 MADAY-7 AMB Questionnaire MADAY-7 Date MADAY - 7 assessed: 03/28/23 Source: Developed by Drs. Kodak Kiran, Magaly Martinez, Bert Benítez and colleagues, with an educational torrie from [employer]. Review of Systems Const All systems reviewed & are unremarkable except as noted in HPI and below Card Denies chest pain at rest, Denies chest pain with activity, Denies edema, Denies irregular heart rhythm, Denies claudication, Denies dyspnea, Denies dyspnea on exertion, Denies orthopnea, Denies paroxysmal nocturnal dyspnea and Denies slow heart rate Resp Denies cough, Denies dyspnea and Denies dyspnea on exertion Physical exam (Primary Care) Vital Signs: Last Vital Signs BP 136/86 10/02/23 11:12 BMI result Body Mass Index 42.4 BMI Assessment/Plan discussion: High BMI High, discussed plan: lifestyle, weight reduction, dietary and physical activity Tobacco/Smoking Status: Tobacco use Status Tobacco use date assessed 03/28/23 10/02/23 11:16 Patient Tobacco Use Status Never used Tobacco 10/02/23 11:16 e-Cigarette/Vaping Use Never Used 10/02/23 11:16 Thrive Assessment: Date of Thrive Assessment Date Thrive assessed 03/28/23 10/02/23 11:16 Resp Effort & Inspection: normal respiratory effort Auscultation: clear to auscultation bilaterally Cardio Jugular venous distension: no JVD Rate: regular rate Rhythm: regular rhythm Heart sounds: S1 normal heart sound present and S2 normal heart sound present Extrem General: Yes full ROM Assessment and Plan Assessment & Plan (1) BPPV (benign paroxysmal positional vertigo): Code(s): H81.10 - Benign paroxysmal vertigo, unspecified ear Qualifiers: Laterality: bilateral Qualified Code(s): H81.13 - Benign paroxysmal vertigo, bilateral Plan: Start meclizine as needed. (2) Morbid obesity with BMI of 40.0-44.9, adult: Code(s): E66.01 - Morbid (severe) obesity due to excess calories; Z68.41 - Body mass index [BMI] 40.0-44.9, adult Plan: Start Wegovy. BMI goal is less than 30. (3) Hypertension: Code(s): I10 - Essential (primary) hypertension Qualifiers: Hypertension type: essential hypertension Qualified Code(s): I10 - Essential (primary) hypertension Plan: Continue lisinopril and hydrochlorothiazide. Blood pressure goal is equal or less than 130/80. (4) Abdominal pain: Code(s): R10.9 - Unspecified abdominal pain Qualifiers: Abdominal location: generalized Qualified Code(s): R10.84 - Generalized abdominal pain Plan: Referred to Gastroenterology. (5) Asthma: Code(s): J45.909 - Unspecified asthma, uncomplicated Qualifiers: Asthma severity: mild Asthma persistence: persistent Asthma complication type: uncomplicated Qualified Code(s): J45.30 - Mild persistent asthma, uncomplicated Plan: Use rescue inhaler as needed. Orders: Referrals Gastroenterology Referral R10.9 - Unspecified abdominal pain Medications: New semaglutide (weight loss) (Wegovy) administer weeks 1 through 4 of therapy 0.25 mg (0.5 mL) subcut QWEEK 2 mL 0RF 4 weeks E66.01 - Morbid (severe) obesity due to excess calories, Z68.41 - Body mass index [BMI] 40.0-44.9, adult meclizine 25 mg PO BID PRN 60 tabs 0RF dizziness 30 days H81.10 - Benign paroxysmal vertigo, unspecified ear Coding Level of Care Code Est Pt Level 4 (98306) Complex EM visit Add On G2211 Diagnoses Benign paroxysmal positional vertigo due to bilateral vestibular disorder H81.13 Laterality: bilateral Morbid obesity with BMI of 40.0-44.9, adult E66.01; Z68.41 Essential hypertension I10 Hypertension type: essential hypertension Generalized abdominal pain R10.84 Abdominal location: generalized Mild persistent asthma without complication J45.30 Asthma severity: mild Asthma persistence: persistent Asthma complication type: uncomplicated Time Spent (min) 23
[2023-10-02 11:12] VITALS: BP 136/86; BMI 42.4
== END 2023-10-02 11:27 | disposition home or self-care (01) ==
PROVIDERS: PCP Internal Medicine; Visit Provider Internal Medicine
DX: H81.13 Benign paroxysmal vertigo, bilateral (principal); E66.01 Morbid (severe) obesity due to excess calories; Z68.41 Body mass index [BMI] 40.0-44.9, adult; I10 Essential (primary) hypertension; R10.84 Generalized abdominal pain; J45.30 Mild persistent asthma, uncomplicated
CPT/HCPCS: 99214; G2211

== ENCOUNTER 2023-11-02 13:23 | Outpatient (AMB) | payer OTHER, SELFPAY ==
--- NOTE | 2023-11-02 13:23 | AM.OFFWIN_ITS ---
Intake Vital Signs 11/02/23 13:24 Height 5 ft 4 in Weight 244 lb BMI 41.9 BP 118/82 Blood Pressure Location Rt radial Position Sitting Pulse 75 Pulse Source Pulse Oximeter Temp 98.9 F Temp Source Oral Pulse Oximetry (%) 97 Oxygen Delivery Method Room Air Intake Visit Reasons: EP- rash on body spreading Intake Note: pt c/o rash on body, spreading. Started a week ago. Left arm, neck Patient Tobacco Use Status: Never used Tobacco Allergies No Known Allergies [No Known Allergies*] Allergy (Verified 11/02/23 13:24) Do you need a note to return to daycare/school/sports/work: No HPI HPI Comments History of Present Illness Details 43 y/o female patient who presents to [facility] walk in clinic with c/o Generalized Rash - neck and upper arms x 1 week. Reports that rash is very itchy and red. Denies changes to cosmetic products, diet, detergent or medications. [facility] Medical History Obesity Rib pain on left side Rib cage dysfunction High cholesterol Hypertension Surgical History H/O section Family History Mother Diabetes Father No problems noted. Social History Housing: Apartment Alcohol intake: current Alcohol intake frequency: holidays/special occasions only Alcohol type: hard liquor Patient Tobacco Use Status: Never used Tobacco e-Cigarette/Vaping Use: Never Used Second Hand Smoke Exposure: No service: No Current occupational status: employed Current occupational exposures/hazards: No Cognitive needs: No Hearing needs: No Vision needs: No Review of Systems Const All systems reviewed & are unremarkable except as noted in HPI and below Physical Exam Vital Signs: Last Vital Signs Temp 98.9 F 11/02/23 13:24 Pulse 75 11/02/23 13:24 BP 118/82 11/02/23 13:24 Pulse Ox 97 11/02/23 13:24 Oxygen Delivery Method Room Air 11/02/23 13:24 BMI result Body Mass Index 41.9 Const General: cooperative and no acute distress Nutritional Appearance: obese Orientation/consciousness: patient oriented x3 Skin Rashes: rashes noted (Red bumps - hives covering neck and upper arms. ) Neuro General: patient oriented x3, gait normal and moves all extremities Psych Speech and movement: Normal speech and movement present Assessment & Plan Assessment & Plan (1) Acute dermatitis: Code(s): L30.9 - Dermatitis, unspecified Plan: Apply medication to the affected areas Take Prednisone as prescribed Take Zyrtec BID Medications: New prednisone 50 mg PO DAILY 5 days 5 tabs 0RF L30.9 - Dermatitis, unspecified betamethasone dipropionate 0.05% 1 appl topical BID PRN 45 grams 0RF skin irritation L30.9 - Dermatitis, unspecified Coding Level of Care Code Est Pt Level 3 (68351) Diagnoses Acute dermatitis L30.9 Time Spent (min) 15
[2023-11-02 13:24] VITALS: BP 118/82; PULSE 75; TEMP 37.2; O2SAT 97; BMI 41.9
== END 2023-11-02 13:35 | disposition home or self-care (01) ==
PROVIDERS: PCP Internal Medicine; Visit Provider Nurse Practitioner Family
DX: L30.9 Dermatitis, unspecified (principal)
CPT/HCPCS: 99213

== ENCOUNTER 2024-02-27 14:42 | Outpatient (AMB) | payer OTHER, SELFPAY ==
--- NOTE | 2024-02-27 15:05 | A.OFFVIS_ITS ---
Vital Signs 02/27/24 15:06 Height 5 ft 4 in Weight 246 lb 14.684 oz BMI 42.4 BP 130/80 Blood Pressure Location Rt radial Position Sitting Pulse 95 Pulse Source Pulse Oximeter Intake Visit Reasons: f/up- palpitations Intake Note: f/up- for palpitations Heel Former Required: No Accompanied by: Self / Same As Patient Allergies No Known Allergies [No Known Allergies*] Allergy (Verified 11/02/23 13:24) Medication List - Last Reconciled 02/27/24 by Hernán Craig MD betamethasone dipropionate 0.05% 1 appl topical BID PRN cholecalciferol (vitamin D3) 50 mcg PO DAILY 90 days hydrochlorothiazide 12.5 mg PO DAILY hydroxyzine HCl 25 mg PO BEDTIME PRN lisinopril 40 mg PO DAILY meclizine 25 mg PO BID PRN 30 days Ventolin HFA 90 mcg/actuation (albuterol sulfate) 2 puffs inhalation Q6H PRN 30 days NS HPI Comments Details: 44-year-old female who [place] [facility] [facility] and wishes to change our care to [facility]. She has background history of hypertension and mitral valve regurgitation. It appears she was diagnosed with mitral regurgitation after murmur was heard few years back. She has been following with Cardiology since then and was getting yearly echocardiogram. By her report she was told that there has not been any significant change in the mitral valve regurgitation. The exact etiology is unclear but it is possible that she has mitral valve prolapse. She has no chest discomfort shortness of breath. Clinically has not been heart failure. She has background of asthma and uses albuterol. Blood pressure control is good on amlodipine, hydrochlorothiazide and lisinopril. She snores at night and has daytime sleepiness. She is asking if she can have a sleep study. 06/18/23: She returns for follow-up. I received her previous records and she had documentation of moderately severe and at times severe mitral valve regurgitation. No symptoms previously were noted. She had 4 pregnancies in the past and it is unclear whether the echoes were performed during and maybe that is why the regurgitation appeared worse due to increased blood volume. She did have preeclampsia during her 2nd and lost the fetus. Her blood pressure is little elevated and she is taking lisinopril and hydrochlorothiazide 12.5 mg daily. No other clinical symptoms currently. 02/27/2024: She is here for follow-up. She had echocardiography in June of 2023. LVEF was 65-70%. Moderate LA dilatation, moderate mitral regurgitation was noted. Normal global longitudinal strain was noted. Normal right ventricular size and function and normal PA pressures. She is saying who the last 1 week she has had significant palpitations. This started around 1 week ago when she woke up from sleep and went to restroom and on the way back started having significant palpitations. She said she was short of breath and was feeling heart beating in her ear and neck. She is saying these symptoms have not improved since then and she still has palpitations right now. [facility] Medical History Obesity Rib pain on left side Rib cage dysfunction High cholesterol Hypertension Surgical History H/O section Family History Mother Diabetes Father No problems noted. Social History Housing: Apartment Alcohol intake: current Alcohol intake frequency: holidays/special occasions only Alcohol type: hard liquor Patient Tobacco Use Status: Never used Tobacco e-Cigarette/Vaping Use: Never Used Second Hand Smoke Exposure: No service: No Current occupational status: employed Current occupational exposures/hazards: No Cognitive needs: No Hearing needs: No Vision needs: No Review of Systems Const Denies chills, Denies fatigue, Denies fever(s), Denies frequent falls, Denies weakness, Denies weight gain and Denies weight loss ENT Denies dizziness Card Denies chest pain, Denies leg edema, Denies lightheadedness, Denies palpitat ions, Denies dyspnea and Denies dyspnea on exertion Resp Denies cough, Denies dyspnea and Denies dyspnea on exertion GI Denies hematochezia Musc Denies abnormal gait, Denies muscle weakness, Denies numbness, Denies radiating pain into limb and Denies tingling Neuro Denies abnormal gait, Denies dizziness, Denies frequent falls, Denies numbness, Denies tingling and Denies weakness Endo Denies fatigue and Denies palpitations Physical Exam Vital Signs: Last Vital Signs Pulse 95 02/27/24 15:06 BP 130/80 02/27/24 15:06 BMI result Body Mass Index 42.4 GENERAL APPEARANCE: in no acute distress, pleasant. Anxious appearing. NECK: no carotid bruit, no jugular venous distention. SKIN: no suspicious lesions, warm and dry. HEART: Mid systolic murmur at the apex heard after handgrip maneuver, regular rate and rhythm. LUNGS: clear to auscultation bilaterally. ABDOMEN: soft, nontender. EXTREMITIES: no edema. PERIPHERAL PULSES: equal. NEUROLOGIC: No gross deficits, AAO X 3 Office Procedures EKG Details: Sinus rhythm 86 beats per minute, normal axis, normal EKG, QTC 440 milliseconds. [id number], Complete Quality Reporting (2019) Adult ([facility] ) Smoking risk assessment performed?: Yes Patient Tobacco Use Status: Never used Tobacco Assessment & Plan Assessment & Plan (1) Hypertension: Code(s): I10 - Essential (primary) hypertension Category: Medical Qualifiers: Hypertension type: essential hypertension Qualified Code(s): I10 - Essential (primary) hypertension (2) Mitral regurgitation: Code(s): I34.0 - Nonrheumatic mitral (valve) insufficiency Category: Medical (3) Palpitations: Code(s): R00.2 - Palpitations Category: Medical Plan Pleasant 44 year female with background of mitral regurgitation here for follow- up. She had hypertension and preeclampsia in the past. Blood pressure is reasonably controlled currently on lisinopril 40 mg and hydrochlorothiazide 12.5 mg daily. Echocardiography recently showing moderate mitral valve regurgitation. There is posterior mitral valve leaflet restricted mobility by transthoracic echocardiogram. She is complaining of palpitations but is currently in sinus rhythm. She is under lot of stress and is quite anxious which could be the likely reason for her palpitations. We discussed and we have decided do a 5 day Holter monitor to rule out any arrhythmia. Thank you for allowing me to participate in the care of your patient. Please feel free to contact me if you have any questions. Orders: Orders ECG 5 day holter monitor Today R00.2 - Palpitations Medications: Discontinued hydroxyzine HCl Discontinued Reason: Doctor's Order 25 mg PO BEDTIME PRN 30 tabs 0RF insomnia G47.00 - Insomnia, unspecified Coding Level of Care Code Est Pt Level 4 (05533) Diagnoses Essential hypertension I10 Hypertension type: essential hypertension Mitral regurgitation I34.0 Palpitations R00.2 CPT Codes EKG - CPT: 44527-[id number], Complete ([id number])
[2024-02-27 15:06] VITALS: BP 130/80; PULSE 95; BMI 42.4
== END 2024-02-27 15:35 | disposition home or self-care (01) ==
PROVIDERS: PCP Internal Medicine; Visit Provider Internal Medicine Cardiovascular Disease
DX: I10 Essential (primary) hypertension (principal); I34.0 Nonrheumatic mitral (valve) insufficiency; R00.2 Palpitations
CPT/HCPCS: 93010; 99214

== ENCOUNTER → 2024-02-27 14:42 | Outpatient (BNVA) | payer OTHER, SELFPAY | PROVIDERS: PCP Internal Medicine; Visit Provider Internal Medicine Cardiovascular Disease | DX: I10 Essential (primary) hypertension (principal); I34.0 Nonrheumatic mitral (valve) insufficiency; R00.2 Palpitations; G47.00 Insomnia, unspecified | CPT/HCPCS: 93005; 99212 ==

== ENCOUNTER → 2024-03-14 11:22 | Outpatient (REF) | payer OTHER, SELFPAY | LOC: HO.CARD 11:22 | PROVIDERS: PCP Internal Medicine; Visit Provider Internal Medicine Cardiovascular Disease | DX: R00.2 Palpitations (principal) | CPT/HCPCS: 93242 ==

== ENCOUNTER → 2024-03-14 11:25 | Outpatient (BNV) | payer OTHER, SELFPAY | PROVIDERS: PCP Internal Medicine; Visit Provider Internal Medicine | DX: I47.10 Supraventricular tachycardia, unspecified (principal) | CPT/HCPCS: 93244 ==

== ENCOUNTER 2024-03-18 11:23 | Outpatient (AMB) | payer OTHER, SELFPAY ==
--- NOTE | 2024-03-18 13:01 | AM.OFFWIN_ITS ---
Intake Vital Signs 03/18/24 13:09 Weight 243 lb BP 130/90 H Blood Pressure Location Lt brachial Position Sitting Pulse 101 H Pulse Source Pulse Oximeter Temp 98.1 F Temp Source Oral Pulse Oximetry (%) 98 Oxygen Delivery Method Room Air Intake Visit Reasons: EP congestion, cough (car) [phone] Intake Note: Patient here for congestion and cough that has been present for 4 days. Patient Tobacco Use Status: Never used Tobacco Allergies No Known Allergies [No Known Allergies*] Allergy (Verified 03/18/24 13:02) Do you need a note to return to daycare/school/sports/work: No HPI HPI Comments History of Present Illness Details History - The patient is a 44-year-old female pr esenting with acute respiratory symptoms. - Symptoms initiated four days prior, st arting with oral pharyngitis that worsened significantly. - Rhinorrhea, sneezing, and nocturnal co ugh have since developed. - The patient's asthma appears aggravate d, with increased reliance on Ventolin for marginal symptom reduction. - reports subjective fevers - No recent exposure to her Streptococcu s-infected mother; separate RSV presence in in-laws existed prior but no contact in weeks. - Negative home COVID test result noted. Physical Exam General: Cooperative, healthy appearing, comfortable and no acute distress Orientation/consciousness: Patient oriented x3 Limitations: No limitations Head: Normal to inspection Ears: Hearing grossly normal bilaterally, external ears normal and TM's normal bilaterally Nose: Normal external nose present, Normal nares present Face and sinus: Normal facial exam and Yes sinuses nontender Mouth: Normal oral and palatal mucosa present and moist mucous membranes Throat: Yes tonsils normal, Yes uvula midline. Posterior oropharynx erythema, no exudates seen Eyes: Appearance normal, both eyes and all related structures Neck: Normal visual inspection Respiratory: Clear to auscultation bilaterally. Normal respiratory effort, able to speak in complete sentences, Actively coughing, no respiratory distress, not tachypneic, no tripod positioning and no use of accessory muscles, but reports occasional wheezing and shortness of breath Cardiovascular: Regular rate and rhythm. Normal S1 and S2 Skin: No rashes or lesions noted Neuro: Patient oriented x3 Extremities: Normal to inspection and Yes no clubbing, cyanosis or edema [facility] Medical History Obesity Rib pain on left side Rib cage dysfunction High cholesterol Hypertension Surgical History H/O section Family History Mother Diabetes Father No problems noted. Social History Housing: Apartment Alcohol intake: current Alcohol intake frequency: holidays/special occasions only Alcohol type: hard liquor Patient Tobacco Use Status: Never used Tobacco e-Cigarette/Vaping Use: Never Used Second Hand Smoke Exposure: No service: No Current occupational status: employed Current occupational exposures/hazards: No Cognitive needs: No Hearing needs: No Vision needs: No Review of Systems Const All systems reviewed & are unremarkable except as noted in HPI and below Physical Exam Vital Signs: Last Vital Signs Temp 98.1 F 03/18/24 13:09 Pulse 101 H 03/18/24 13:09 BP 130/90 H 03/18/24 13:09 Pulse Ox 98 03/18/24 13:09 Oxygen Delivery Method Room Air 03/18/24 13:09 Results AMB Rapid Strep AMB Rapid Strep Negative Last Edit by GAURAV Donaldson on 03/18/24 13:41 Assessment & Plan Assessment & Plan (1) URI, acute: Code(s): J06.9 - Acute upper respiratory infection, unspecified Plan: Plan I will evaluate for an upper respiratory tract infection with consideration for viral etiologies such as influenza, COVID-19, and RSV through appropriate swab testing. Despite the negative at-home COVID-19 result, laboratory testing is indicated. Given the history of asthma, I advise continued Ventolin use for acute exacerbations. Monitoring the temporal pattern of symptom exacerbation will guide further adjustments in management. Though Streptococcal pharyngitis is possible, the lack of recent contact with an infected individual reduces its likelihood. Rapid strep is negative, no exudates noted on exam. Symptomatic relief remains a priority, with further testing guiding specific treatments if necessary. Will treat for atypical pneumonia with azithromycin. Patient was informed and verbally consented to the use of an ambient scribe for clinic note documentation during this visit Orders: Orders SARS-CoV2/FLU/RSV Today J06.9 - Acute upper respiratory infection, unspecified AMB Rapid Strep Screen Today Z13.9 - Encounter for screening, unspecified Coding Level of Care Code Est Pt Level 4 (86043) Diagnoses URI, acute J06.9
[2024-03-18 13:09] VITALS: BP 130/90; PULSE 101; TEMP 36.7; O2SAT 98
== END 2024-03-18 13:45 | disposition home or self-care (01) ==
PROVIDERS: PCP Internal Medicine; Visit Provider Physician Assistant
DX: J06.9 Acute upper respiratory infection, unspecified (principal); Z13.9 Encounter for screening, unspecified

== ENCOUNTER 2024-03-18 11:23 | Outpatient (REF) | payer OTHER, SELFPAY ==
[2024-03-18 18:50] LABS: Influenza A PCR NEGATIVE (Negative); Influenza B PCR NEGATIVE (Negative); Resp Syncy Virus RNA Qual PCR NEGATIVE (Negative); SARS COV2 PCR INHOUSE NEGATIVE (Negative)
== END 2024-03-18 11:24 | disposition home or self-care (01) ==
LOC: HO.LAB 11:23
PROVIDERS: Physician Assistant; PCP Internal Medicine
DX: J06.9 Acute upper respiratory infection, unspecified (principal)
CPT/HCPCS: 0241U; 87880; 99212

== ENCOUNTER 2024-04-04 10:49 | Outpatient (AMB) | payer OTHER, SELFPAY ==
--- NOTE | 2024-04-04 11:18 | A.OFFPC_ITS ---
Vital Signs 04/04/24 11:20 Height 5 ft 4 in Weight 247 lb 8 oz BMI 42.5 BP 140/62 H Blood Pressure Location Lt brachial Position Sitting Pulse 66 Pulse Source Pulse Oximeter Temp 97.1 F Temp Source Skin Pulse Oximetry (%) 98 Oxygen Delivery Method Room Air Intake Visit Reasons: Heart palpitations Intake Note: Patient is here to follow up on Heart Palpitations. 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: No Financial Advocate: Not Required per policy Accompanied by: Self / Same As Patient Allergies No Known Allergies [No Known Allergies*] Allergy (Verified 04/04/24 11:41) Medication List - Last Reconciled 04/04/24 by Brayan Reina MD betamethasone dipropionate 0.05% 1 appl topical BID PRN cholecalciferol (vitamin D3) 50 mcg PO DAILY 90 days hydrochlorothiazide 12.5 mg PO DAILY lisinopril 40 mg PO DAILY meclizine 25 mg PO BID PRN 30 days Ventolin HFA 90 mcg/actuation (albuterol sulfate) 2 puffs inhalation Q6H PRN 30 days NS Tobacco use date assessed: 04/04/24 Dental Screening Dental Screen Date: 04/04/24 Did you have a dental visit in the last 12 months?: No Did you have a dental problem in the last 6 months where you did not have access to dental care?: No Was dental information given to patient?: No HPI Heart palpitations HPI Details Patient comes in today for follow up of her recurrent sensations of palpitations, which she states she is still experiencing on and off lately States that her symptoms started a few months ago and she has undergone several tests and work ups since, including echocardiogram, labs and more recently, an extended Holter monitor that effectively ruled out any arrhythmia as a contributor to her symptoms She was seen and evaluated by cardiology last month and was advised that her s ymptoms are likely due to anxiety as her cardiac tests have all been unrevealing Patient admits that she does have a lot of anxiety issues lately but states that when her sensations of palpitations occur, she does not really feel any more anxious than usual Her symptoms are often triggered when she gets up at night, and she would then feel like her heart is racing, with associated sensation of fullness in her ears and head at the time States that she's had a couple of panic or near-panic attacks over the past few weeks Admits that she used to drink a lot of Coca-Cola but does not drink coffee or tea and she has been making a conscious effort to cut back on her caffeine intake lately She reports that she does not sleep well and wakes up multiple times in the middle of the night for no particular reason She denies any headaches or dizziness Denies any exertional chest pains or increased SOB No nausea/vomiting, no abdominal pain No change in bowel habits noted PFSH Medical History Vitamin D deficiency Essential hypertension Obesity Rib pain on left side Rib cage dysfunction High cholesterol Hypertension Surgical History H/O section Family History Mother Diabetes Father No problems noted. Social History Housing: Apartment Alcohol intake: current Alcohol intake frequency: holidays/special occasions only Alcohol type: hard liquor Patient Tobacco Use Status: Never used Tobacco e-Cigarette/Vaping Use: Never Used Second Hand Smoke Exposure: No service: No Current occupational status: employed Current occupational exposures/hazards: No Cognitive needs: No Hearing needs: No Vision needs: No Questionnaire PHQ-9 Over the last 2 weeks, how often have you been bothered by any of the following problems? 1. Little interest or pleasure in doing things: not at all 2. Feeling down, depressed, or hopeless: not at all 3. Trouble falling or staying asleep, or sleeping too much: not at all 4. Feeling tired or having little energy: not at all 5. Poor appetite or overeating: not at all 6. Feeling bad about yourself - or that you are a failure or have let yourself or your family down: not at all 7. Trouble concentrating on things, such as reading the newspaper or watching television: not at all 8. Moving or speaking so slowly that other people could have noticed. Or the opposite - being so fidgety or restless that you have been moving around a lot more than usual: not at all 9. Thoughts that you would be better off or of hurting yourself in some way: not at all Total score: 0 Depression Screening Interpretation: Negative Depression Screening Done: Yes 31711 - PHQ-9 Billing: Yes Source: Developed by Drs. Kodak Kiran, Magaly Martinez, Bert Benítez and colleagues, with an educational torrie from [employer]. Thrive Questionnaire Date Thrive assessed: 04/04/24 I am a: Patient What is your living situation today?: I have a steady place to live Within the past 12 months, did the food you bought not last and you didn't have the money to get more?: Never true Within the past 12 months, did you worry whether your food would run out before you got money to buy more?: Never true Do you have trouble paying for medicines?: No Do you have trouble getting transportation to medical appointments?: No Do you have trouble paying your heating and electricity bill?: No Do you have trouble taking care of your child, family member or friend?: No Do you have trouble with day-to-day activities such as bathing, preparing meals, shopping, managing finances, etc.?: No Are you currently unemployed and looking for a job?: No Are you interested in more education?: No Please select the resources that you would like help with: None Currently or been in a relationship where the following occur: No concerns reported THRIVE Score: 0 AUDIT C Alcohol Use Questionnaire (AUDIT-C) 1. How often do you have a drink containing alcohol?: Never 3. How often do you have six or more drinks on one occasion?: Never Total Score: 0 Score Reviewed/Action Taken: Yes MADAY-7 AMB Questionnaire MADAY-7 Date MADAY - 7 assessed: 04/04/24 Feeling nervous, anxious, or on edge: 3 = Nearly every day Not being able to stop or control worryin = Several days Worrying too much about different things: 1 = Several days Trouble relaxin = Several days Being so restless that it is hard to sit still: 2 = More than half the days Becoming easily annoyed or irritable: 2 = More than half the days Feeling afraid as if something awful might happen: 0 = Not at all Total MADAY-7 score (0-4 normal; 5-9 mild; 10-14 moderate; 15-21 severe): 10 Source: Developed by Drs. Kodak Kiran, Magaly Martinez, Bert Benítez and colleagues, with an educational torrie from [employer]. Review of Systems Const Denies chills, Reports difficulty sleeping (wakes up often in the middle of the night), Reports fatigue, Denies fever(s) and Denies headache(s) ENT Denies dysphagia, Denies dizziness, Denies otalgia, Denies headache(s), Denies neck pain, Denies odynophagia and Denies sore throat Card Denies chest pain, Reports rapid heart rate (at times), Reports palpitations (on and off sensations of palpitations) and Denies dyspnea Resp Denies chest congestion, Denies cough and Denies dyspnea GI Denies abdominal pain, Denies constipation, Denies dysphagia, Denies heartburn, Denies diarrhea, Denies nausea, Denies odynophagia and Denies vomiting Denies difficulty voiding, Denies nocturia, Denies dysuria and Denies urinary urgency Musc Denies back pain and Denies neck pain Skin/Breast Denies rash Neuro Denies dizziness and Denies headache(s) Psych Reports anxiety (increased - see HPI) and Reports panic attacks (a couple of times in the past few weeks) Endo Reports fatigue and Reports palpitations (on and off sensations of palpitations) Physical exam (Primary Care) Vital Signs: Last Vital Signs Temp 97.1 F 04/04/24 11:20 Pulse 66 04/04/24 11:20 BP 140/62 H 04/04/24 11:20 Pulse Ox 98 04/04/24 11:20 Oxygen Delivery Method Room Air 04/04/24 11:20 BMI result Body Mass Index 42.5 Tobacco/Smoking Status: Tobacco use Status Tobacco use date assessed 04/04/24 04/04/24 11:24 Patient Tobacco Use Status Never used Tobacco 04/04/24 11:24 e-Cigarette/Vaping Use Never Used 04/04/24 11:24 PHQ-9: PHQ-9 Score PHQ-9: Total score 0 04/04/24 11:24 Depression Screening Interpretation: Negative Thrive Assessment: Date of Thrive Assessment Date Thrive assessed 04/04/24 04/04/24 11:24 Currently or been in a relationship where the following occur: No concerns reported Const General: no acute distress and alert HENMT Ears: TM's normal bilaterally and EAC's normal Throat: Yes posterior oropharynx normal and Yes tonsils normal (no TP congestion noted) Neck Neck: Yes supple and No lymphadenopathy Thyroid: Thyroid normal Resp Auscultation: clear to auscultation bilaterally, no rales and no wheezes Cardio Rate: regular rate Rhythm: regular rhythm Heart sounds: Murmur heart sound present systolic mid, soft and at the apex GI Palpation (GI): Soft to palpation and nontender Auscultation: normal bowel sounds General: Yes no CVA tenderness Back/Spine/Pelvis Back: no CVA tenderness Thoracic/Lumbar Spine: No lumbar spinal tenderness Skin Rashes: no rashes Extrem General: Yes no clubbing, cyanosis or edema Coding Level of Care Code Est Pt Level 4 (74205) Diagnoses Palpitations R00.2 Generalized anxiety disorder F41.1 Essential hypertension I10 Vitamin D deficiency E55.9 Morbid obesity with BMI of 40.0-44.9, adult E66.01; Z68.41 Additional Codes PHQ-9 - 55535 - PHQ-9 Billing: Yes ([id number]) Assessment & Plan Assessment & Plan (1) Palpitations: Code(s): R00.2 - Palpitations Category: Medical Plan: Patient has had extensive work ups done over the past month or so, including labs, EKG, echocardiogram and extended Holter monitor, all of which have been unrevealing Her echocardiogram revealed normal LV ejection fraction of 65 to 70% with (+) moderately dilated left atrium, moderate mitral regurgitation and no gross pericardial effusion but these do not have any known contributions to her recurrent palpitations A 5-day Holter monitor done a few weeks ago revealed underlying sinus rhythm with an average rate of 84/minute, with rare supraventricular and ventricular ectopy and no significant pauses of high-grade AV blocks. No patient markers or diary events were noted as well Have advised patient again (as did cardiology last month) that her symptoms are likely related to her increasing anxiety lately She declined offer to start her on Rx for her anxiety but agrees to seeing someone for therapy/counseling and agrees to trying some Rx more for symptomatic relief Will start her on a trial of Propranolol ER 60 mg Q AM and Clonidine 0.1 mg Q HS PRN to help control her symptoms and with her sleep at night She is advised to monitor her blood pressure closely for the next few weeks and to call if she feels that her blood pressure is running too low and/or she becomes symptomatic She is again reminded to avoid any caffeine-containing foods or drinks that can exacerbate or aggravate her symptoms (2) Generalized anxiety disorder: Code(s): F41.1 - Generalized anxiety disorder Category: Medical Plan: Patient declines offer to start her on Rx for her anxiety but agrees to Rx to help with her symptoms - Propranolol ER in AM and Clonidine Q HS She also agrees to go to therapy and counseling - [facility] to [facility] (3) Essential hypertension: Code(s): I10 - Essential (primary) hypertension Category: Medical Plan: Reinforced low sodium diet - goal is systolic BP of at least 120 to 130 mm or less Continue Lisinopril 40 mg QD and HCTZ 12.5 mg QD (4) Vitamin D deficiency: Code(s): E55.9 - Vitamin D deficiency, unspecified Category: Medical Plan: Continue Vitamin D3 2000 units QD (5) Morbid obesity with BMI of 40.0-44.9, adult: Code(s): E66.01 - Morbid (severe) obesity due to excess calories; Z68.41 - Body mass index [BMI] 40.0-44.9, adult Category: Medical Plan: Reinforced diet/exercise as tolerated/lose weight Plan To return as scheduled next week for her annual physical examination with her PCP Orders: Referrals Psychiatry Referral F41.1 - Generalized anxiety disorder Medications: New propranolol ER 60 mg PO DAILY 30 days 30 caps 1RF F41.1 - Generalized anxiety disorder clonidine HCl 0.1 mg PO BEDTIME 30 days 30 tabs 1RF
[2024-04-04 11:20] VITALS: BP 140/62; PULSE 66; TEMP 36.2; O2SAT 98; BMI 42.5
== END 2024-04-04 11:54 | disposition home or self-care (01) ==
PROVIDERS: PCP Internal Medicine; Visit Provider Internal Medicine
DX: R00.2 Palpitations (principal); F41.1 Generalized anxiety disorder; I10 Essential (primary) hypertension; E55.9 Vitamin D deficiency, unspecified; E66.01 Morbid (severe) obesity due to excess calories; Z68.41 Body mass index [BMI] 40.0-44.9, adult

== ENCOUNTER → 2024-04-04 10:49 | Outpatient (BNVA) | payer OTHER, SELFPAY | PROVIDERS: PCP Internal Medicine; Visit Provider Internal Medicine | DX: R00.2 Palpitations (principal); F41.1 Generalized anxiety disorder; I10 Essential (primary) hypertension; E55.9 Vitamin D deficiency, unspecified; E66.01 Morbid (severe) obesity due to excess calories; Z68.41 Body mass index [BMI] 40.0-44.9, adult; Z71.3 Dietary counseling and surveillance | CPT/HCPCS: 96127; 99212 ==

== ENCOUNTER 2024-04-10 09:25 | Outpatient (REF) | payer OTHER, SELFPAY ==
--- NOTE | ~2024-04-10 | XR_ITS ---
EXAMINATION: XR CHEST 2 VIEWS HISTORY: R05.9 - Cough, unspecified COMPARISON: Comparison is made with the prior examination dated 11/23/2022. FINDINGS: PA and lateral views of the chest are submitted. The lungs are expanded and clear. There is no pleural effusion, pneumothorax, or pulmonary vascular congestion. The heart is normal in size. The bones are intact. XR/XR chest 2V IMPRESSION: No acute cardiopulmonary abnormality. Electronically signed by: Kodak Mccormick MD 04/10/2024 02:31 PM CHARLY
== END 2024-04-10 09:26 | disposition home or self-care (01) ==
LOC: HO.XRAY 09:25
PROVIDERS: PCP Internal Medicine; Visit Provider Internal Medicine
DX: Z00.01 Encounter for general adult medical examination with abnormal findings (principal); R05.9 Cough, unspecified; J06.9 Acute upper respiratory infection, unspecified; E66.01 Morbid (severe) obesity due to excess calories; Z68.41 Body mass index [BMI] 40.0-44.9, adult; F32.0 Major depressive disorder, single episode, mild
CPT/HCPCS: 71046; 96127; 99212; 99396

== ENCOUNTER 2024-04-10 09:25 | Outpatient (AMB) | payer OTHER, SELFPAY ==
--- NOTE | 2024-04-10 09:40 | MHC.PC.OV ---
Vital Signs 04/10/24 09:41 Height 5 ft 4 in Weight 245 lb BMI 42.0 BP 136/80 Blood Pressure Location Lt brachial Position Sitting Intake Visit Reasons: Annual Exam Intake Note: Patient here for an annual physical exam Asl Interpreter Required: Yes Asl Interpreter Language: Certified Nurses' Aide Name: Sanjana More MD Accompanied by: Self / Same As Patient Allergies No Known Allergies [No Known Allergies*] Allergy (Verified 04/10/24 09:53) Medication List - Last Reconciled 04/10/24 by Sanjana More MD cholecalciferol (vitamin D3) 50 mcg PO DAILY 90 days clonidine HCl 0.1 mg PO BEDTIME 30 days hydrochlorothiazide 12.5 mg PO DAILY lisinopril 40 mg PO DAILY meclizine 25 mg PO BID PRN 30 days propranolol ER 60 mg PO DAILY 90 days Ventolin HFA 90 mcg/actuation (albuterol sulfate) 2 puffs inhalation Q6H PRN 30 days NS Tobacco use date assessed: 04/04/24 Dental Screening Dental Screen Date: 04/10/24 Did you have a dental visit in the last 12 months?: No Did you have a dental problem in the last 6 months where you did not have access to dental care?: No Was dental information given to patient?: Patient has dentist HPI HPI Comments History of Present Illness Details The patient is a 44-year-old female presenting for her physical exam with a persistent cough. She reported that approximately two weeks ago, her cough returned and worsened after having mildly improved. The patient has previously been on antibiotics, which initially resulted in some improvement. There is no mention of fever or additional respiratory symptoms. Notable history includes two negative test results for COVID-19 and RSV. However, further examination or accurate blood pressure measurements were impeded by a skin condition, though specifics of this condition were not elaborated during the visit. Cologuard sent for screening of colon cancer and she never due to last year. Will be referred to colonoscopy this year. Pap smear was over 5 years ago and will be referred to OBGYN. Mammogram done last year. [facility] Medical History (Updated 04/10/24 @ 12:35 by Sanjana More MD) Vitamin D deficiency Essential hypertension Obesity Rib pain on left side Rib cage dysfunction High cholesterol Hypertension Surgical History H/O section Family History Mother Diabetes Father No problems noted. Social History Housing: Apartment Alcohol intake: current Alcohol intake frequency: holidays/special occasions only Alcohol type: hard liquor Patient Tobacco Use Status: Never used Tobacco e-Cigarette/Vaping Use: Never Used Second Hand Smoke Exposure: No service: No Current occupational status: employed Current occupational exposures/hazards: No Cognitive needs: No Hearing needs: No Vision needs: No Questionnaire PHQ-9 Over the last 2 weeks, how often have you been bothered by any of the following problems? 1. Little interest or pleasure in doing things: several days 2. Feeling down, depressed, or hopeless: not at all 3. Trouble falling or staying asleep, or sleeping too much: more than half the days 4. Feeling tired or having little energy: nearly every day 5. Poor appetite or overeating: not at all 6. Feeling bad about yourself - or that you are a failure or have let yourself or your family down: not at all 7. Trouble concentrating on things, such as reading the newspaper or watching television: several days 8. Moving or speaking so slowly that other people could have noticed. Or the opposite - being so fidgety or restless that you have been moving around a lot more than usual: not at all 9. Thoughts that you would be better off or of hurting yourself in some way: not at all Total score: 7 Depression Screening Interpretation: Positive Depression Screening Follow-up: Existing condition and Follow-up Visit Requested Depression Screening Done: Yes 85248 - PHQ-9 Billing: Yes Source: Developed by Drs. Kodak Kiran, Magaly Martinez, Bert Benítez and colleagues, with an educational torrie from [employer]. Thrive Questionnaire Date Thrive assessed: 04/04/24 I am a: Patient What is your living situation today?: I have a steady place to live Within the past 12 months, did the food you bought not last and you didn't have the money to get more?: Never true Within the past 12 months, did you worry whether your food would run out before you got money to buy more?: Never true Do you have trouble paying for medicines?: No Do you have trouble getting transportation to medical appointments?: No Do you have trouble paying your heating and electricity bill?: No Do you have trouble taking care of your child, family member or friend?: No Do you have trouble with day-to-day activities such as bathing, preparing meals, shopping, managing finances, etc.?: No Are you currently unemployed and looking for a job?: Yes Are you interested in more education?: No Please select the resources that you would like help with: None Currently or been in a relationship where the following occur: No concerns reported THRIVE Score: 0 AUDIT C Alcohol Use Questionnaire (AUDIT-C) 1. How often do you have a drink containing alcohol?: Never Total Score: 0 Score Reviewed/Action Taken: No MADAY-7 AMB Questionnaire MADAY-7 Date MADAY - 7 assessed: 04/04/24 Feeling nervous, anxious, or on edge: 1 = Several days Not being able to stop or control worryin = Several days Worrying too much about different things: 0 = Not at all Trouble relaxin = Several days Being so restless that it is hard to sit still: 0 = Not at all Becoming easily annoyed or irritable: 1 = Several days Feeling afraid as if something awful might happen: 0 = Not at all Total MADAY-7 score (0-4 normal; 5-9 mild; 10-14 moderate; 15-21 severe): 4 Source: Developed by Drs. Kodak Kiran, Magaly Martinez, Bert Benítez and colleagues, with an educational torrie from [employer]. MADAY-7 Assessment Billing MADAY-7 Assessment Tool: MADAY-7 Assessment 87172 Review of Systems Const All systems reviewed & are unremarkable except as noted in HPI and below ENT Reports nasal congestion and Reports nasal discharge Card Denies chest pain at rest, Denies chest pain with activity, Denies edema, Denies irregular heart rhythm, Denies claudication, Denies dyspnea, Denies dyspnea on exertion, Denies orthopnea, Denies paroxysmal nocturnal dyspnea and Denies slow heart rate Resp Reports cough, Reports excessive phlegm production, Denies dyspnea and Denies dyspnea on exertion GI Denies abdominal pain, Denies change in bowel habits, Denies excessive flatus, Denies nausea and Denies vomiting Denies urinary incontinence, Denies urinary hesitancy and Denies urinary urgency Physical exam (Primary Care) Vital Signs: Last Vital Signs BP 136/80 04/10/24 09:41 BMI result Body Mass Index 42.0 BMI Assessment/Plan discussion: High BMI High, discussed plan: lifestyle, weight reduction, dietary and physical activity Tobacco/Smoking Status: Tobacco use Status Tobacco use date assessed 04/04/24 04/10/24 09:44 Patient Tobacco Use Status Never used Tobacco 04/10/24 09:44 e-Cigarette/Vaping Use Never Used 04/10/24 09:44 PHQ-9: PHQ-9 Score PHQ-9: Total score 7 04/10/24 09:57 Depression Screening Interpretation: Positive Depression Screening Follow-up: Existing condition and Follow-up Visit Requested Thrive Assessment: Date of Thrive Assessment Date Thrive assessed 04/04/24 04/10/24 09:44 Currently or been in a relationship where the following occur: No concerns reported [facility] [place] Head: Yes normal to inspection, Yes normocephalic and Yes atraumatic Ears: external ears normal Eyes General: appearance normal, both eyes and all related structures Eyelids: Yes eyelids normal Conjunctivae: conjunctivae normal Neck Neck: Yes normal visual inspection and Yes supple Resp Effort & Inspection: normal respiratory effort Auscultation: clear to auscultation bilaterally Cardio Jugular venous distension: no JVD Rate: regular rate Rhythm: regular rhythm Heart sounds: S1 normal heart sound present and S2 normal heart sound present GI Inspection: Yes normal to inspection Palpation (GI): Soft to palpation and nontender Auscultation: normal bowel sounds Skin General skin exam: no rashes or lesions noted Neuro General: no focal motor deficits Extrem General: Yes full ROM Psych Appearance: grossly normal Office Procedures Flu Questionnaire Does the patient have a severe egg allergy?: No Immunizations Fluarix Triv [id number] (PF) 45 mcg (15 mcg x 3)/0.5 mL IM syringe Performing Provider: Sanjana More MD [facility] Documented (not given) by: RUTHIE Vázquez on 04/10/24 09:46 Reason Not Given: Patient Refused Coding Level of Care Code Est Pt Level 3 (20693) Est Pt Prev Care 40-64y(03441) Diagnoses Physical exam Z00.00 Morbid obesity with BMI of 40.0-44.9, adult E66.01; Z68.41 URI (upper respiratory infection) J06.9 Mild major depression F32.0 Additional Codes MADAY-7 Assessment Billing - MADAY-7 Assessment Tool: MADAY-7 Assessment 98849 ([id number]) PHQ-9 - 22806 - PHQ-9 Billing: Yes ([id number]) Time Spent (min) 34 Assessment & Plan Assessment & Plan (1) Physical exam: Code(s): Z00.00 - Encounter for general adult medical examination without abnormal findings Category: Medical (2) Morbid obesity with BMI of 40.0-44.9, adult: Code(s): E66.01 - Morbid (severe) obesity due to excess calories; Z68.41 - Body mass index [BMI] 40.0-44.9, adult Category: Medical (3) URI (upper respiratory infection): Code(s): J06.9 - Acute upper respiratory infection, unspecified Category: Medical (4) Mild major depression: Code(s): F32.0 - Major depressive disorder, single episode, mild Category: Medical Plan - Continue antibiotic therapy due to the persistence and worsening of the cough. - Order chest X-ray to further evaluate the cause of the persistent cough. Patient was informed and verbally consented to the use of an ambient scribe for clinic note documentation during this visit. I discussed with the patient the likely persistence of a respiratory infection despite previous antibiotic treatment. I emphasized the importance of completing the prescribed antibiotic regimen. Furthermore, I recommended obtaining a chest X-ray to further investigate and evaluate potential causes of the persistent cough given the improvement and then worsening pattern. I advised the patient to monitor her symptoms closely and report any new or worsening symptoms promptly. Orders: Orders Lipid Panel Today E78.5 - Hyperlipidemia, unspecified IRON PROFILE Today D64.9 - Anemia, unspecified Comprehensive [place]. Panel Fast Today Z00.00 - Encounter for general adult medical examination without abnormal findings XR chest 2V Today R05.9 - Cough, unspecified Influenza [id number] Immunization Today Z23 - Encounter for immunization Complete Blood Count Auto Diff Today D64.9 - Anemia, unspecified Vitamin D 25-OH Total Today E55.9 - Vitamin D deficiency, unspecified Vitamin B12 and Folate Today E53.8 - Deficiency of other specified B group vitamins Referrals Gastroenterology Referral Z12.11 - Encounter for screening for malignant neoplasm of colon MANAGEMENT DEVELOPER Referral Z12.4 - Encounter for screening for malignant neoplasm of cervix Medical Weight Management Referral E66.01 - Morbid (severe) obesity due to excess calories, Z68.41 - Body mass index [BMI] 40.0-44.9, adult Medications: New azithromycin Take 2 tabs the first day, then 1 tab for the next 4 days 250 mg PO DAILY 5 days 6 tabs 0RF Patient Instructions: - Continue taking all prescribed antibiotics as directed. - Monitor your cough and any new symptoms. - Follow up for a chest X-ray as scheduled. - Report any significant changes or worsening of symptoms immediately.
[2024-04-10 09:41] VITALS: BP 136/80; BMI 42.0
== END 2024-04-10 10:06 | disposition home or self-care (01) ==
PROVIDERS: PCP Internal Medicine; Visit Provider Internal Medicine
DX: Z00.00 Encounter for general adult medical examination without abnormal findings (principal); E66.01 Morbid (severe) obesity due to excess calories; Z68.41 Body mass index [BMI] 40.0-44.9, adult; F32.0 Major depressive disorder, single episode, mild; J06.9 Acute upper respiratory infection, unspecified

== ENCOUNTER → 2024-04-10 10:20 | Outpatient (BNV) | payer OTHER, SELFPAY | PROVIDERS: PCP Internal Medicine; Visit Provider Radiology Diagnostic Radiology | DX: R05.9 Cough, unspecified (principal) | CPT/HCPCS: 71046 ==

== ENCOUNTER 2024-05-20 11:51 | Outpatient (REF) | payer OTHER, SELFPAY ==
[2024-05-20 12:05] LABS: MANUAL DIFF FLAG NO
[2024-05-20 12:39] LABS: Basophils Absolute Auto 0.1 X10*3/uL (0.0-0.2); Basophils Percent Auto 0.9 % (0-2); Eosinophils Absolute Auto 0.2 X10*3/uL (0.0-0.4); Eosinophils Percent Auto 2.7 % (0-4); Hematocrit 33.9 % (37.0-47.0); Imm Gran Abs Auto 0.01 X10*3/uL (0.00-0.03); Imm Gran Pct Auto 0.1 % (0.0-0.4); Lymphocytes Absolute Auto 2.2 X10*3/uL (1.2-4.9); Lymphocytes Percent Auto 33.2 % (20-40); Mean Corpuscular HGB Conc 32.4 g/dl (31.0-35.0); Mean Corpuscular Volume 80.1 fL (80.0-98.0); Mean Platelet Volume 9.9 fL (9.4-12.3); Monocytes Absolute Auto 0.4 X10*3/uL (0.1-1.2); Monocytes Percent Auto 6.6 % (2-11); Neutrophils Absolute Auto 3.8 x10*3/uL (2.0-8.3); Neutrophils Percent Auto 56.5 % (45-73); Platelet Count 287 X10*3/uL (160-400); Red Blood Count 4.23 X10*6/uL (4.20-5.50); Red Cell Distribution Width 14.5 % (11.0-16.0); White Blood Count 6.7 X10*3/uL (4.8-10.8)
[2024-05-20 12:40] LABS: Hematocrit 33.7 % (37.0-47.0); Mean Corpuscular HGB Conc 32.6 g/dl (31.0-35.0); Mean Corpuscular Hemoglobin 26.3 pg (27.0-33.0); Mean Corpuscular Volume 80.6 fL (80.0-98.0); Mean Platelet Volume 10.6 fL (9.4-12.3); Platelet Count 247 X10*3/uL (160-400); Red Blood Count 4.18 X10*6/uL (4.20-5.50); Red Cell Distribution Width 14.5 % (11.0-16.0)
[2024-05-20 13:08] LABS: Cholesterol 215 mg/dL (<200); HDL Cholesterol 37 mg/dL (>40); Iron 55 mcg/dL (30-160); LDL Cholesterol Calculated 145 mg/dL (<100); Percent Iron Saturation 17 % (15-50); Total Iron Binding Capacity 318 mcg/dL (228-428); Triglycerides 166 mg/dL (<150); Unsaturated Iron Binding 263 ug/dL
[2024-05-20 13:12] LABS: Alanine Aminotransferase 22 U/L (0-31); Albumin Level 3.9 g/dL (3.5-5.0); Alkaline Phosphatase 64 U/L (39-117); Anion Gap 11 (12-20); Aspartate Amino Transferase 22 U/L (5-31); Bilirubin Total 0.4 mg/dL (0.0-1.0); Blood Urea Nitrogen 13 mg/dL (9-16); Calcium 9.1 mg/dL (8.4-10.2); Carbon Dioxide 26 mmol/L (22-29); Chloride 109 mmol/L (96-108); Cholesterol 216 mg/dL (<200); Estimated Glomerular Filt Rate > 60; Glucose Fasting 101 mg/dL (60-99); HDL Cholesterol 36 mg/dL (>40); Iron 54 mcg/dL (30-160); LDL Cholesterol Calculated 150 mg/dL (<100); Percent Iron Saturation 18 % (15-50); Potassium 3.8 mmol/L (3.3-5.1); Sodium 142 mmol/L (135-145); Total Iron Binding Capacity 303 mcg/dL (228-428); Total Protein 7.4 g/dL (6.5-8.0); Triglycerides 153 mg/dL (<150); Unsaturated Iron Binding 249 ug/dL
[2024-05-20 13:24] LABS: Vitamin D 25-OH Total 29.7 ng/mL (>30)
[2024-05-20 13:28] LABS: TSH reflex Free T4 1.55 uIU/mL (0.32-4.0)
[2024-05-20 13:37] LABS: Folate 4.7 ng/mL (> or = 4.0); Vitamin B12 256 pg/mL (200-900)
== END 2024-05-20 11:52 | disposition home or self-care (01) ==
LOC: HO.LAB 11:51
PROVIDERS: Absent Provider Internal Medicine Cardiovascular Disease; PCP Internal Medicine; Visit Provider Internal Medicine
DX: Z00.00 Encounter for general adult medical examination without abnormal findings (principal); D64.9 Anemia, unspecified; R00.2 Palpitations; E78.00 Pure hypercholesterolemia, unspecified; E78.5 Hyperlipidemia, unspecified; E55.9 Vitamin D deficiency, unspecified; E53.8 Deficiency of other specified B group vitamins
CPT/HCPCS: 36415; 80053; 80061; 82306; 82607; 82746; 83540; 84443; 85025; 85027

== ENCOUNTER 2024-06-11 15:01 | Outpatient (AMB) | payer OTHER, SELFPAY ==
--- NOTE | 2024-06-11 15:09 | MHC.OFFVIS ---
Vital Signs 06/11/24 15:11 Height 5 ft 4 in Weight 244 lb 4.355 oz BMI 41.9 BP 130/60 Blood Pressure Location Rt radial Position Sitting Pulse 74 Pulse Source Pulse Oximeter Intake Visit Reasons: 3 mth f/up Intake Note: 3 mth f/up- holter Steel Loader Required: No Accompanied by: Self / Same As Patient Allergies No Known Allergies [No Known Allergies*] Allergy (Verified 04/10/24 09:53) Medication List - Last Reconciled 06/11/24 by Hernán Craig MD azithromycin 250 mg PO DAILY 5 days cholecalciferol (vitamin D3) 50 mcg PO DAILY 90 days clonidine HCl 0.1 mg PO BEDTIME 30 days hydrochlorothiazide 12.5 mg PO DAILY lisinopril 40 mg PO DAILY meclizine 25 mg PO BID PRN 30 days propranolol ER 60 mg PO DAILY 90 days rosuvastatin 20 mg PO DAILY Ventolin HFA 90 mcg/actuation (albuterol sulfate) 2 puffs inhalation Q6H PRN 30 days NS HPI Comments Details: 44-year-old female who was following with [facility] and wishes to change our care to [facility]. She has background history of hypertension and mitral valve regurgitation. It appears she was diagnosed with mitral regurgitation after murmur was heard few years back. She has been following with Cardiology since then and was getting yearly echocardiogram. By her report she was told that there has not been any significant change in the mitral valve regurgitation. The exact etiology is unclear but it is possible that she has mitral valve prolapse. She has no chest discomfort shortness of breath. Clinically has not been heart failure. She has background of asthma and uses albuterol. Blood pressure control is good on amlodipine, hydrochlorothiazide and lisinopril. She snores at night and has daytime sleepiness. She is asking if she can have a sleep study. 06/18/23: She returns for follow-up. I received her previous records and she had documentation of moderately severe and at times severe mitral valve regurgitation. No symptoms previously were noted. She had 4 pregnancies in the past and it is unclear whether the echoes were performed during and maybe that is why the regurgitation appeared worse due to increased blood volume. She did have preeclampsia during her 2nd and lost the fetus. Her blood pressure is little elevated and she is taking lisinopril and hydrochlorothiazide 12.5 mg daily. No other clinical symptoms currently. 02/27/2024: She is here for follow-up. She had echocardiography in June of 2023. LVEF was 65-70%. Moderate LA dilatation, moderate mitral regurgitation was noted. Normal global longitudinal strain was noted. Normal right ventricular size and function and normal PA pressures. She is saying that for last 1 week she has had significant palpitations. This started around 1 week ago when she woke up from sleep and went to restroom and on the way back started having significant palpitations. She said she was short of breath and was feeling heart beating in her ear and neck. She is saying these symptoms have not improved since then and she still has palpitations right now. 06/11/2024: She is here for follow-up. Previous echocardiography has shown moderate mitral valve regurgitation. There is restriction of posterior mitral valve leaflet by transthoracic echocardiography. DARLEEN has never been pursued before. She continues to be asymptomatic with no dyspnea on exertion or symptoms/signs of heart failure. Her complaints are again palpitations during the daytime. She previously had 5 day Holter monitor during which she had episodes of palpitations but we did not note any significant arrhythmia on her Holter monitoring. [facility] Medical History Vitamin D deficiency Essential hypertension Obesity Rib pain on left side Rib cage dysfunction High cholesterol Hypertension Surgical History H/O section Family History Mother Diabetes Father No problems noted. Social History Housing: Apartment Alcohol intake: current Alcohol intake frequency: holidays/special occasions only Alcohol type: hard liquor Patient Tobacco Use Status: Never used Tobacco e-Cigarette/Vaping Use: Never Used Second Hand Smoke Exposure: No service: No Current occupational status: employed Current occupational exposures/hazards: No Cognitive needs: No Hearing needs: No Vision needs: No Review of Systems Const Denies chills, Denies fatigue, Denies fever(s), Denies frequent falls, Denies weakness, Denies weight gain and Denies weight loss ENT Denies dizziness Card Denies chest pain, Denies leg edema, Denies lightheadedness, Denies palpitations, Denies dyspnea and Denies dyspnea on exertion Resp Denies cough, Denies dyspnea and Denies dyspnea on exertion GI Denies hematochezia Musc Denies abnormal gait, Denies muscle weakness, Denies numbness, Denies radiating pain into limb and Denies tingling Neuro Denies abnormal gait, Denies dizziness, Denies frequent falls, Denies numbness, Denies tingling and Denies weakness Endo Denies fatigue and Denies palpitations Physical Exam Vital Signs: Last Vital Signs Pulse 74 06/11/24 15:11 BP 130/60 06/11/24 15:11 BMI result Body Mass Index 41.9 GENERAL APPEARANCE: in no acute distress, pleasant. NECK: no carotid bruit, no jugular venous distention. SKIN: no suspicious lesions, warm and dry. HEART: Systolic murmur previously appreciated at the apex not her today even with handgrip maneuver, regular rate and rhythm. LUNGS: clear to auscultation bilaterally. ABDOMEN: soft, nontender. EXTREMITIES: no edema. PERIPHERAL PULSES: equal. NEUROLOGIC: No gross deficits, AAO X 3 Assessment & Plan Assessment & Plan (1) Mitral regurgitation: Code(s): I34.0 - Nonrheumatic mitral (valve) insufficiency Category: Medical Plan Very pleasant 44 year female who is here for follow-up. She has background of palpitations and mitral regurgitation. No obvious reason for palpitations has been picked up by Holter monitoring although she had symptoms while wearing the Holter monitor. I have reassured her currently that symptoms could be related to anxiety or stress. She is saying that she is under lot of stress recently and is feeling more palpitations. She has moderate mitral valve regurgitation by echocardiography from 07/07/2023. Currently I do not even hear a murmur on her. I think her mitral regurgitation has been quite fluctuant because previous echocardiography had wide range of regurgitation noted. In any case currently she is stable. I do not want to repeat the echocardiogram. I have advised her to see us back in 6 months. We will potentially repeat ECHO at that stage. Thank you for allowing me to participate in the care of your patient. Please feel free to contact me if you have any questions. Coding Level of Care Code Est Pt Level 4 (00960) Complex EM visit Add On G2211 Diagnoses Mitral regurgitation I34.0
[2024-06-11 15:11] VITALS: BP 130/60; PULSE 74; BMI 41.9
== END 2024-06-11 15:37 | disposition home or self-care (01) ==
PROVIDERS: PCP Internal Medicine; Visit Provider Internal Medicine Cardiovascular Disease
DX: I34.0 Nonrheumatic mitral (valve) insufficiency (principal)
CPT/HCPCS: 99214; G2211

== ENCOUNTER 2024-09-11 12:28 | Outpatient (REF) | payer OTHER, SELFPAY | END 2024-09-11 12:29 | disposition home or self-care (01) | LOC: CF 12:28 | PROVIDERS: PCP Internal Medicine; Visit Provider Internal Medicine | DX: I34.0 Nonrheumatic mitral (valve) insufficiency (principal) | CPT/HCPCS: 99212 ==

== ENCOUNTER 2024-10-23 10:03 | Outpatient (AMB) | payer OTHER, SELFPAY ==
--- NOTE | 2024-10-23 10:09 | MHC.PC.OV ---
Vital Signs 10/23/24 10:10 Height 5 ft 4 in Weight 244 lb BMI 41.9 BP 118/86 Blood Pressure Location Lt brachial Position Sitting Intake Visit Reasons: Med review Medical Office Rep Required: No Accompanied by: Self / Same As Patient Allergies No Known Allergies (No Known Allergies*) Allergy (Verified 10/23/24 10:17) Medication List - Last Reconciled 10/23/24 by Sanjana More MD cholecalciferol (vitamin D3) 50 mcg PO DAILY 90 days clonidine HCl 0.1 mg PO BEDTIME 30 days hydrochlorothiazide 25 mg PO DAILY lisinopril 40 mg PO DAILY meclizine 25 mg PO BID PRN 30 days rosuvastatin 20 mg PO DAILY Ventolin HFA 90 mcg/actuation (albuterol sulfate) 2 puffs inhalation Q6H PRN 30 days NS Tobacco use date assessed: 04/04/24 Dental Screening Dental Screen Date: 10/23/24 Did you have a dental visit in the last 12 months?: Yes Did you have a dental problem in the last 6 months where you did not have access to dental care?: No Was dental information given to patient?: Patient has dentist HPI HPI Comments History of Present Illness Details The patient is a 44-year-old female presenting with a follow-up on her blood pressure management and other health concerns. She has a history of hypertension, which is well controlled with lisinopril and hydrochlorothiazide in the morning and clonidine at bedtime, which also aids her sleep. Her blood pressure today is 118/86 mmHg. The patient is morbidly obese with a BMI of 41.9, and she feels more comfortable with her current management plan. She has mild depression with anxiety and has expressed a desire to see a mental health professional. A referral to a psychologist at [facility] has been made. The patient reports having skin lesions on her face and wishes to consult dermatology again. She previously saw Dr. [place], who removed some lesions. She complains of epigastric pain and left upper quadrant pain and is seeking a gastroenterology consultation. An ultrasound and an upper GI series have been ordered to investigate these symptoms. The patient has a history of anemia, and a CBC will be ordered to monitor her condition. She also has low vitamin D levels, which have improved with supplements but will be rechecked. She experiences insomnia, for which magnesium will be prescribed at bedtime to aid sleep. Her cholesterol levels are elevated but have shown improvement with statins, and a lipid panel has been ordered. The patient denies any chest pain or shortness of breath but has a history of palpitations, although a previous Holter monitor test was negative. [facility] Medical History (Updated 10/23/24 @ 10:48 by Sanjana More MD) Vitamin D deficiency Essential hypertension Obesity Rib pain on left side Rib cage dysfunction High cholesterol Hypertension Surgical History H/O section Family History Mother Diabetes Father No problems noted. Social History (Updated 10/23/24 @ 10:26 by Sanjana More MD) Housing: Apartment Alcohol intake: former Patient Tobacco Use Status: Never used Tobacco e-Cigarette/Vaping Use: Never Used Second Hand Smoke Exposure: No service: No Current occupational status: employed Current occupational exposures/hazards: No Cognitive needs: No Hearing needs: No Vision needs: No Questionnaire Thrive Questionnaire Date Thrive assessed: 04/10/24 I am a: Patient What is your living situation today?: I have a steady place to live Within the past 12 months, did the food you bought not last and you didn't have the money to get more?: Never true Within the past 12 months, did you worry whether your food would run out before you got money to buy more?: Never true Do you have trouble paying for medicines?: No Do you have trouble getting transportation to medical appointments?: No Do you have trouble paying your heating and electricity bill?: No Do you have trouble taking care of your child, family member or friend?: No Do you have trouble with day-to-day activities such as bathing, preparing meals, shopping, managing finances, etc.?: No Are you currently unemployed and looking for a job?: Yes Are you interested in more education?: No Please select the resources that you would like help with: None Currently or been in a relationship where the following occur: No concerns reported THRIVE Score: 0 MADAY-7 AMB Questionnaire MADAY-7 Date MADAY - 7 assessed: 04/04/24 Source: Developed by Magaly Singh B.W. Juan, Bert Benítez and colleagues, with an educational torrie from [employer]. Review of Systems Const All systems reviewed & are unremarkable except as noted in HPI and below Card Denies chest pain at rest, Denies chest pain with activity, Denies edema, Denies irregular heart rhythm, Denies claudication, Denies dyspnea, Denies dyspnea on exertion, Denies orthopnea, Denies paroxysmal nocturnal dyspnea and Denies slow heart rate Resp Denies cough, Denies dyspnea and Denies dyspnea on exertion GI Reports abdominal pain, Denies change in bowel habits, Denies excessive flatus, Denies nausea and Denies vomiting Denies urinary incontinence, Denies urinary hesitancy and Denies urinary urgency Musc Denies atrophy, Denies deformity and Denies limited range of motion Physical exam (Primary Care) Vital Signs: Last Vital Signs BP 118/86 10/23/24 10:10 BMI result Body Mass Index 41.9 BMI Assessment/Plan discussion: High BMI High, discussed plan: lifestyle, weight reduction, dietary and physical activity Tobacco/Smoking Status: Tobacco use Status Tobacco use date assessed 04/04/24 10/23/24 10:13 Patient Tobacco Use Status Never used Tobacco 10/23/24 10:26 e-Cigarette/Vaping Use Never Used 10/23/24 10:26 Thrive Assessment: Date of Thrive Assessment Date Thrive assessed 04/10/24 10/23/24 10:13 Currently or been in a relationship where the following occur: No concerns reported Resp Effort & Inspection: normal respiratory effort Auscultation: clear to auscultation bilaterally Cardio Jugular venous distension: no JVD Rate: regular rate Rhythm: regular rhythm Heart sounds: S1 normal heart sound present and S2 normal heart sound present GI Palpation (GI): Tenderness to palpation present (GI) in the epigastrum and in the LUQ Extrem General: Yes full ROM Coding Level of Care Code Est Pt Level 4 (31872) Complex EM visit Add On G2211 Diagnoses Essential hypertension I10 Mild major depression F32.0 Generalized anxiety disorder F41.1 Morbid obesity with BMI of 40.0-44.9, adult E66.01; Z68.41 Vitamin D deficiency E55.9 Pure hypercholesterolemia E78.00 Left upper quadrant abdominal pain R10.12 Epigastric pain R10.13 Insomnia G47.00 Skin lesions L98.9 Time Spent (min) 24 Assessment & Plan Assessment & Plan (1) Essential hypertension: Code(s): I10 - Essential (primary) hypertension Category: Medical (2) Mild major depression: Code(s): F32.0 - Major depressive disorder, single episode, mild Category: Medical (3) Generalized anxiety disorder: Code(s): F41.1 - Generalized anxiety disorder Category: Medical (4) Morbid obesity with BMI of 40.0-44.9, adult: Code(s): E66.01 - Morbid (severe) obesity due to excess calories; Z68.41 - Body mass index [BMI] 40.0-44.9, adult Category: Medical (5) Vitamin D deficiency: Code(s): E55.9 - Vitamin D deficiency, unspecified Category: Medical (6) Pure hypercholesterolemia: Code(s): E78.00 - Pure hypercholesterolemia, unspecified Category: Medical (7) Left upper quadrant abdominal pain: Code(s): R10.12 - Left upper quadrant pain Category: Medical (8) Epigastric pain: Code(s): R10.13 - Epigastric pain Category: Medical (9) Insomnia: Code(s): G47.00 - Insomnia, unspecified Category: Medical (10) Skin lesions: Code(s): L98.9 - Disorder of the skin and subcutaneous tissue, unspecified Category: Medical Plan The patient will continue her current antihypertensive regimen of lisinopril, hydrochlorothiazide, and clonidine, as her blood pressure is well controlled. A referral to a psychologist at [facility] has been made to address her mild depression with anxiety. For her skin lesions, a dermatology consultation is recommended, as she has previously seen Dr. Leslie for similar issues. To evaluate her epigastric and left upper quadrant pain, an ultrasound and an upper GI series have been ordered. A CBC will be conducted to monitor her anemia, and her vitamin D levels will be rechecked to ensure they remain stable with supplementation. Magnesium will be prescribed at bedtime to help with her insomnia, and a lipid panel will be ordered to assess her cholesterol levels, which have improved with statins. Patient was informed and verbally consented to the use of an ambient scribe for clinic note documentation during this visit. Orders: Orders US abdomen white w elastography Today R10.12 - Left upper quadrant pain Lipid Panel Today E78.5 - Hyperlipidemia, unspecified Complete Blood Count Auto Diff Today D64.9 - Anemia, unspecified FL upper GI series Today R10.13 - Epigastric pain IRON PROFILE Today D64.9 - Anemia, unspecified Vitamin D 25-OH Total Today E55.9 - Vitamin D deficiency, unspecified Comprehensive Loco. Panel Fast Today I10 - Essential (primary) hypertension Referrals Cologuard Test Z12.11 - Encounter for screening for malignant neoplasm of colon, Z12.12 - Encounter for screening for malignant neoplasm of rectum Gastroenterology Referral R10.12 - Left upper quadrant pain Psychiatry Outpatient Consultation Service F41.1 - Generalized anxiety disorder Dermatology Referral L98.9 - Disorder of the skin and subcutaneous tissue, unspecified Medications: New magnesium glycinate 300 mg (3 x 100 mg magnesium) PO BEDTIME 270 caps 1RF 90 days
[2024-10-23 10:10] VITALS: BP 118/86; BMI 41.9
== END 2024-10-23 10:40 | disposition home or self-care (01) ==
LOC: HO.HMCH 10:04
PROVIDERS: PCP Internal Medicine; Visit Provider Internal Medicine
DX: I10 Essential (primary) hypertension (principal); F32.0 Major depressive disorder, single episode, mild; F41.1 Generalized anxiety disorder; E66.01 Morbid (severe) obesity due to excess calories; Z68.41 Body mass index [BMI] 40.0-44.9, adult; E55.9 Vitamin D deficiency, unspecified; E78.00 Pure hypercholesterolemia, unspecified; R10.12 Left upper quadrant pain; R10.13 Epigastric pain; G47.00 Insomnia, unspecified; L98.9 Disorder of the skin and subcutaneous tissue, unspecified

== ENCOUNTER → 2024-10-23 10:03 | Outpatient (BNVA) | payer OTHER, SELFPAY | PROVIDERS: PCP Internal Medicine; Visit Provider Internal Medicine | DX: I10 Essential (primary) hypertension (principal); E66.01 Morbid (severe) obesity due to excess calories; R10.13 Epigastric pain; R10.12 Left upper quadrant pain; G47.00 Insomnia, unspecified; F32.0 Major depressive disorder, single episode, mild; F41.1 Generalized anxiety disorder; E55.9 Vitamin D deficiency, unspecified; E78.00 Pure hypercholesterolemia, unspecified; L98.9 Disorder of the skin and subcutaneous tissue, unspecified; Z68.41 Body mass index [BMI] 40.0-44.9, adult; Z79.899 Other long term (current) drug therapy | CPT/HCPCS: 99212 ==

== ENCOUNTER 2024-12-18 09:14 | Outpatient (REF) | payer OTHER, SELFPAY ==
--- NOTE | ~2024-12-18 | US_ITS ---
EXAMINATION: US ABDOMEN LIMITED CLINICAL INFORMATION: Left upper quadrant pain. COMPARISON: Retroperitoneal ultrasound 08/01/2018. TECHNIQUE: Real-time imaging of the spleen and left kidney were performed. FINDINGS: LEFT KIDNEY: No hydronephrosis. No renal calculi or focal parenchymal lesions. The kidney measures 11.3 cm in maximum dimension. SPLEEN: Normal in appearance, measuring 11.4 cm. FREE FLUID: None. US/US abdomen limited IMPRESSION: Normal left kidney and spleen. Electronically signed by: Иван Nair MD 12/18/2024 10:01 AM EDT
[2024-12-18 09:59] LABS: MANUAL DIFF FLAG NO
[2024-12-18 10:32] LABS: Hematocrit 34.7 % (37.0-47.0); Hemoglobin 11.5 g/dl (12.0-16.0); Imm Gran Abs Auto 0.03 X10*3/uL (0.00-0.03); Imm Gran Pct Auto 0.5 % (0.0-0.4); Lymphocytes Absolute Auto 2.3 X10*3/uL (1.2-4.9); Mean Corpuscular HGB Conc 33.1 g/dl (31.0-35.0); Mean Corpuscular Hemoglobin 26.5 pg (27.0-33.0); Mean Corpuscular Volume 80.0 fL (80.0-98.0); NRBC Abs Auto 0.000 X10*3/uL (0.0-0.012); NRBC Pct Auto 0.0 /100WBC (0.0-0.2); Platelet Count 294 X10*3/uL (160-400); Red Blood Count 4.34 X10*6/uL (4.20-5.50); White Blood Count 6.4 X10*3/uL (4.8-10.8)
[2024-12-18 11:05] LABS: Alanine Aminotransferase 19 U/L (0-31); Albumin Level 4.4 g/dL (3.5-5.0); Alkaline Phosphatase 75 U/L (39-117); Anion Gap 10 (12-20); Aspartate Amino Transferase 22 U/L (5-31); Blood Urea Nitrogen 13 mg/dL (9-16); Calcium 9.6 mg/dL (8.4-10.2); Carbon Dioxide 30 mmol/L (22-29); Chloride 107 mmol/L (96-108); Cholesterol 259 mg/dL (<200); Estimated Glomerular Filt Rate > 60; HDL Cholesterol 33 mg/dL (>40); Iron 56 mcg/dL (30-160); Percent Iron Saturation 18 % (15-50); Potassium 4.0 mmol/L (3.3-5.1); Sodium 143 mmol/L (135-145); Total Iron Binding Capacity 316 mcg/dL (228-428); Total Protein 7.2 g/dL (6.5-8.0); Triglycerides 201 mg/dL (<150); Unsaturated Iron Binding 260 ug/dL
== END 2024-12-18 09:15 | disposition home or self-care (01) ==
LOC: HO.US 09:14
PROVIDERS: PCP Internal Medicine; Visit Provider Internal Medicine
DX: R10.12 Left upper quadrant pain (principal); E78.5 Hyperlipidemia, unspecified; D64.9 Anemia, unspecified; E55.9 Vitamin D deficiency, unspecified; I10 Essential (primary) hypertension
CPT/HCPCS: 36415; 76705; 80053; 80061; 82306; 83540; 85025

== ENCOUNTER → 2024-12-18 09:18 | Outpatient (BNV) | payer OTHER, SELFPAY | PROVIDERS: PCP Internal Medicine; Visit Provider Radiology Diagnostic Radiology | DX: R10.12 Left upper quadrant pain (principal) | CPT/HCPCS: 76705 ==

== ENCOUNTER 2025-01-28 | Outpatient (REF) | payer OTHER, SELFPAY | END 2025-01-28 00:01 | disposition home or self-care (01) | LOC: CF | PROVIDERS: PCP Internal Medicine | DX: I34.0 Nonrheumatic mitral (valve) insufficiency (principal); E78.00 Pure hypercholesterolemia, unspecified; I10 Essential (primary) hypertension; E66.9 Obesity, unspecified | CPT/HCPCS: 93005; 99212 ==

== ENCOUNTER 2025-01-28 13:18 | Outpatient (AMB) | payer OTHER, SELFPAY ==
[2025-01-28 13:39] VITALS: BP 114/58; PULSE 86; BMI 42.6
--- NOTE | 2025-01-28 13:39 | MHC.OFFVIS ---
Vital Signs 01/28/25 13:39 Height 5 ft 4 in Weight 248 lb 3.848 oz BMI 42.6 BP 114/58 L Blood Pressure Location Lt brachial Position Sitting Pulse 86 Pulse Source Monitor Intake Visit Reasons: r/s KM appt- 12/17-6mth f/up Obstetrics Specialist Required: No Accompanied by: Self / Same As Patient Allergies No Known Allergies (No Known Allergies*) Allergy (Verified 01/28/25 13:42) Medication List - Last Reconciled 01/28/25 by Margarito Gill NP cholecalciferol (vitamin D3) 50 mcg PO DAILY 90 days clonidine HCl 0.1 mg PO BEDTIME 30 days hydrochlorothiazide 25 mg PO DAILY lisinopril 40 mg PO DAILY magnesium glycinate 300 mg (3 x 100 mg magnesium) PO BEDTIME 90 days meclizine 25 mg PO BID PRN 30 days rosuvastatin 20 mg PO DAILY Ventolin HFA 90 mcg/actuation (albuterol sulfate) 2 puffs inhalation Q6H PRN 30 days NS HPI Comments Details: This is a 45-year-old female patient coming in for a follow-up visit. Patient with a history of hypertension, hyperlipidemia, mitral regurgitation, and obesity. Patient has been having ongoing palpitations for over a year for which patient has undergone multiple Holter studies with no significant arrhythmias. Today, patient is reporting ongoing palpitations unchanged at this time and attributes it most likely to her stress and anxiety. Patient is denying any associated symptoms of exertional chest pain, shortness of breath, dizziness, orthopnea, PND, leg edema, presyncope or syncope. Patient is reporting compliance with all her medications. Patient does note that she has been having a hard time losing weight and was working with PCP on [employer] and was referred to weight management however patient has not heard back yet. [facility] Medical History Vitamin D deficiency Essential hypertension Obesity Rib pain on left side Rib cage dysfunction High cholesterol Hypertension Surgical History H/O section Family History Mother Diabetes Father No problems noted. Social History Housing: Apartment Alcohol intake: former Patient Tobacco Use Status: Never used Tobacco e-Cigarette/Vaping Use: Never Used Second Hand Smoke Exposure: No service: No Current occupational status: employed Current occupational exposures/hazards: No Cognitive needs: No Hearing needs: No Vision needs: No Review of Systems Const Denies daytime sleepiness, Denies difficulty sleeping, Denies snoring, Denies stops breathing during sleep and Denies weakness Card Denies chest pain, Denies rapid heart rate, Denies irregular heart rhythm, Denies claudication, Denies leg edema, Denies lightheadedness, Reports palpitations, Denies dyspnea, Denies dyspnea on exertion, Denies orthopnea, Denies paroxysmal nocturnal dyspnea and Denies slow heart rate Resp Denies cough, Denies dyspnea, Denies dyspnea on exertion and Denies snoring GI Reports no additional complaints, Denies hematochezia, Denies change in stool character and Denies dyspepsia Musc Denies abnormal gait, Denies muscle weakness and Denies numbness Neuro Denies abnormal gait, Denies numbness and Denies weakness Endo Reports palpitations Physical Exam Vital Signs: Last Vital Signs Pulse 86 01/28/25 13:39 BP 114/58 L 01/28/25 13:39 BMI result Body Mass Index 42.6 Const General: cooperative, healthy appearing, comfortable and no acute distress Orientation/consciousness: patient oriented x3 HEENT Head: Yes normal to inspection Neck Neck: Yes normal visual inspection, Yes trachea midline and Yes supple Chest Chest palpation & inspection: normal inspection of the chest Resp Effort & Inspection: normal respiratory effort Auscultation: clear to auscultation bilaterally, no crackles, no rales, no rhonchi and no wheezes Cardio Jugular venous distension: no JVD Palpation: normal PMI Rate: regular rate Rhythm: regular rhythm Heart sounds: S1 normal heart sound present, S2 normal heart sound present, no click, no gallops, no murmurs and no rubs Peripheral pulses: Peripheral pulses 2+ throughout GI Inspection: Yes normal to inspection Palpation (GI): Soft to palpation Auscultation: normal bowel sounds Skin General skin exam: no rashes or lesions noted Neuro General: patient oriented x3 Extrem General: Yes normal to inspection, No no pedal edema and No calf tenderness Psych Appearance: grossly normal Mental Status: mental status grossly normal Speech and movement: Normal speech and movement present Office Procedures EKG Details: EKG today showed normal sinus rhythm, rate 86 beats per minute, nonspecific ST-T wave, [place], [place] [id number], Complete Assessment & Plan Assessment & Plan (1) Mitral regurgitation: Code(s): I34.0 - Nonrheumatic mitral (valve) insufficiency Category: Medical Plan: 07/09/2023-echo showed a normal LV systolic function with an ejection fraction between 65-70%, moderately dilated left atrium, moderate mitral regurgitation. Clinically stable and euvolemic. Discussed signs and symptoms of mitral regurgitation to watch for. We will plan for an echo in 6 months per plan. (2) Pure hypercholesterolemia: Code(s): E78.00 - Pure hypercholesterolemia, unspecified Category: Medical Plan: Patient was started on rosuvastatin about 6 months ago for dyslipidemia. Most recent LDL elevated at 186. We will increase the rosuvastatin to 40 mg daily and repeat labs in 3 months. Ideally, LDL goal closer to 70. (3) Essential hypertension: Code(s): I10 - Essential (primary) hypertension Category: Medical Plan: Blood pressure today is well-controlled. Continue current regimen with a blood pressure goal less than 130/80. Advised monitoring blood pressures at home. Advised on low-salt diet. (4) Obesity: Code(s): E66.9 - Obesity, unspecified Category: Medical Plan: Patient has been having a hard time losing weight and was started on Wegovy by PCP and referred out to weight management however patient states that she never heard back. We will try to arrange this with weight management today as she would benefit significantly from it. Advised on heart healthy diet, regular exercise, losing weight, med compliance, and aggressive management of vascular risk factors. Follow up in 6 months. In the interim, patient will call the office with any concerns or change in symptoms. This note was generated using voice recognition software. While every effort has been made to ensure accuracy and proper printer slotter feeder, there may be occasional errors that could affect the content or meaning of the described symptoms. Orders: Orders CA echo transthoracic complete 5 Months I34.0 - Nonrheumatic mitral (valve) insufficiency Lipid Panel 3 Months E78.00 - Pure hypercholesterolemia, unspecified AMB EKG-In Office Today R00.2 - Palpitations Medications: New rosuvastatin 40 mg PO DAILY 90 tabs 3RF Discontinued rosuvastatin Discontinued Reason: Doctor's Order 20 mg PO DAILY 90 tabs 3RF E78.00 - Pure hypercholesterolemia, unspecified Coding Level of Care Code Est Pt Level 4 (51595) Complex EM visit Add On G2211 Diagnoses Mitral regurgitation I34.0 Pure hypercholesterolemia E78.00 Essential hypertension I10 Obesity E66.9 CPT Codes EKG - CPT: 60159-[id number], Complete ([id number]) Time Spent (min) 32 Comment Time spent in reviewing the chart, test results, assessment, counseling and documentation.
== END 2025-01-28 14:16 | disposition home or self-care (01) ==
LOC: HO.HCS 13:19
PROVIDERS: PCP Internal Medicine
DX: I34.0 Nonrheumatic mitral (valve) insufficiency (principal); E78.00 Pure hypercholesterolemia, unspecified; I10 Essential (primary) hypertension; E66.9 Obesity, unspecified
CPT/HCPCS: 93010; 99214

== ENCOUNTER 2025-03-03 10:36 | Outpatient (AMB) | payer OTHER, SELFPAY ==
--- NOTE | 2025-03-03 10:41 | A.OFFPC_ITS ---
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: No Accompanied by: Self / Same As Patient Allergies rosuvastatin Adverse Reaction (Severe, Verified 03/03/25 13:17) myalgias Medication List - Last Reconciled 03/03/25 by Sanjana More MD cholecalciferol (vitamin D3) 50 mcg PO DAILY 90 days clonidine HCl 0.1 mg PO BEDTIME 30 days hydrochlorothiazide 12.5 mg PO DAILY lisinopril 40 mg PO DAILY magnesium glycinate 300 mg (3 x 100 mg magnesium) PO BEDTIME 90 days meclizine 25 mg PO BID PRN 30 days rosuvastatin 40 mg PO DAILY Ventolin HFA 90 mcg/actuation (albuterol sulfate) 2 puffs inhalation Q6H PRN 30 days NS Tobacco use date assessed: 04/04/24 Dental Screening Dental Screen Date: 10/23/24 HPI HPI Comments History of Present Illness Details The patient is a 45 year old female presenting for management of chronic conditions and preventative care. She was prescribed rosuvastatin 40 mg for hypercholesterolemia in December, but discontinued it after one week due to experiencing severe myalgias, which subsequently improved after cessation. She also reports slightly elevated blood sugar. Her medical history is significant for hypertension, for which she takes clonidine 0.1 mg nightly and a combination of lisinopril 40 mg and hydrochlorothiazide 12.5 mg, which appears to be controlling her blood pressure well. She also has a history of endometriosis and takes magnesium at night and meclizine as needed for dizziness. Her depression and anxiety are noted to be controlled. She reports no known drug allergies and takes vitamin D. Regarding preventative screenings, she has a mammogram scheduled for March. She has a follow-up appointment in March for a physical exam, which will include a Pap smear. A Cologuard test was previously ordered in October but not completed. She also has an appointment with weight management. She is morbidly obese with a BMI of 41.9. [facility] Medical History (Updated 03/03/25 @ 11:35 by Sanjana Mroe MD) Vitamin D deficiency Essential hypertension Obesity Rib pain on left side Rib cage dysfunction High cholesterol Hypertension Surgical History H/O section Family History Mother Diabetes Father No problems noted. Social History Housing: Apartment Alcohol intake: former Patient Tobacco Use Status: Never used Tobacco e-Cigarette/Vaping Use: Never Used Second Hand Smoke Exposure: No service: No Current occupational status: employed Current occupational exposures/hazards: No Cognitive needs: No Hearing needs: No Vision needs: No Questionnaire Thrive Questionnaire Date Thrive assessed: 04/10/24 What is your living situation today?: I have a steady place to live Within the past 12 months, did the food you bought not last and you didn't have the money to get more?: Never true Within the past 12 months, did you worry whether your food would run out before you got money to buy more?: Never true Do you have trouble paying for medicines?: No Do you have trouble getting transportation to medical appointments?: No Do you have trouble paying your heating and electricity bill?: No Do you have trouble taking care of your child, family member or friend?: No Do you have trouble with day-to-day activities such as bathing, preparing meals, shopping, managing finances, etc.?: No Are you currently unemployed and looking for a job?: Yes Are you interested in more education?: No Please select the resources that you would like help with: None Currently or been in a relationship where the following occur: No concerns reported THRIVE Score: 0 MADAY-7 AMB Questionnaire MADAY-7 Date MADAY - 7 assessed: 04/04/24 Source: Developed by Drs. Kodak Kiran, Magaly Martinez, Bert Benítez and colleagues, with an educational torrie from [employer]. Review of Systems Const All systems reviewed & are unremarkable except as noted in HPI and below Card Denies chest pain at rest, Denies chest pain with activity, Denies edema, Denies irregular heart rhythm, Denies claudication, Denies dyspnea, Denies dyspnea on exertion, Denies orthopnea, Denies paroxysmal nocturnal dyspnea and Denies slow heart rate Resp Denies cough, Denies dyspnea and Denies dyspnea on exertion GI Denies abdominal pain, Denies change in bowel habits, Denies excessive flatus, Denies nausea and Denies vomiting Physical exam (Primary Care) Vital Signs: Last Vital Signs Temp 97.7 F 03/03/25 10:42 Pulse 75 03/03/25 10:42 Resp 18 03/03/25 10:42 BP 126/82 03/03/25 10:42 Pulse Ox 97 03/03/25 10:42 Oxygen Delivery Method Room Air 03/03/25 10:42 BMI result Body Mass Index 41.9 BMI Assessment/Plan discussion: High BMI High, discussed plan: lifestyle, weight reduction, dietary and physical activity Tobacco/Smoking Status: Tobacco use Status Tobacco use date assessed 04/04/24 03/03/25 10:44 Patient Tobacco Use Status Never used Tobacco 03/03/25 10:44 e-Cigarette/Vaping Use Never Used 03/03/25 10:44 Thrive Assessment: Date of Thrive Assessment Date Thrive assessed 04/10/24 03/03/25 10:44 Currently or been in a relationship where the following occur: No concerns reported Resp Effort & Inspection: normal respiratory effort Auscultation: clear to auscultation bilaterally Cardio Jugular venous distension: no JVD Rate: regular rate Rhythm: regular rhythm Heart sounds: S1 normal heart sound present and S2 normal heart sound present Extrem General: Yes full ROM Coding Level of Care Code Est Pt Level 4 (77282) Diagnoses Essential hypertension I10 Pure hypercholesterolemia E78.00 Morbid obesity with BMI of 40.0-44.9, adult E66.01; Z68.41 Mild major depression F32.0 Time Spent (min) 20 Assessment & Plan Assessment & Plan (1) Essential hypertension: Code(s): I10 - Essential (primary) hypertension Category: Medical (2) Pure hypercholesterolemia: Code(s): E78.00 - Pure hypercholesterolemia, unspecified Category: Medical (3) Morbid obesity with BMI of 40.0-44.9, adult: Code(s): E66.01 - Morbid (severe) obesity due to excess calories; Z68.41 - Body mass index [BMI] 40.0-44.9, adult Category: Medical (4) Mild major depression: Code(s): F32.0 - Major depressive disorder, single episode, mild Category: Medical Plan Plan 1. Hypercholesterolemia And Statin Intolerance The patient discontinued rosuvastatin due to severe myalgias. The skip hoist engineer wants her to take a cholesterol medication. Discussion included dietary modifications to help lower cholesterol, such as increasing oatmeal and cereal intake, while being mindful of carbohydrates and potential weight gain. Advised that egg whites are a good option, but egg yolks are not. She will be referred to Weight Management, which may also assist with her cholesterol. 2. Hypertension The patient's blood pressure is well-controlled on her current regimen of clonidine, lisinopril, and hydrochlorothiazide. Will continue current medication management. 3. Morbid obesity Start diet and exercise. BMI goal is less than 30. 4. Mild major depression Consider counseling. Orders: Orders Lipid Panel Today E78.5 - Hyperlipidemia, unspecified Comprehensive [place]. Panel Fast Today I10 - Essential (primary) hypertension [place] upper GI series Today R10.13 - Epigastric pain Vitamin D 25-OH Total Today E55.9 - Vitamin D deficiency, unspecified Referrals Cologuard Test Z12.11 - Encounter for screening for malignant neoplasm of colon, Z12.12 - Encounter for screening for malignant neoplasm of rectum Rheumatology Referral M25.50 - Pain in unspecified joint
[2025-03-03 10:42] VITALS: BP 126/82; PULSE 75; RESP 18; TEMP 36.5; O2SAT 97; BMI 41.9
== END 2025-03-03 11:37 | disposition home or self-care (01) ==
LOC: HO.HMCH 10:37
PROVIDERS: PCP Internal Medicine; Visit Provider Internal Medicine
DX: I10 Essential (primary) hypertension (principal); E78.00 Pure hypercholesterolemia, unspecified; E66.01 Morbid (severe) obesity due to excess calories; Z68.41 Body mass index [BMI] 40.0-44.9, adult; F32.0 Major depressive disorder, single episode, mild

== ENCOUNTER → 2025-03-03 10:36 | Outpatient (BNVA) | payer OTHER, SELFPAY | PROVIDERS: PCP Internal Medicine; Visit Provider Internal Medicine | DX: I10 Essential (primary) hypertension (principal); E78.00 Pure hypercholesterolemia, unspecified; F32.0 Major depressive disorder, single episode, mild; E66.01 Morbid (severe) obesity due to excess calories; Z68.41 Body mass index [BMI] 40.0-44.9, adult | CPT/HCPCS: 99212 ==